=== PATIENT | male | born 1945 | race Two or more races ===

== ENCOUNTER → 2018-05-16 | Outpatient (CLI) | payer MEDICARE ==
[2014-05-11 10:36] VITALS: BP 123/56
[~2018-05-16] MED LIST: GLIP10TA13 PO; GLIP5TAB10 PO; HYDR25SU18 RC; LACT20SO PO; METF10007 PO; METF500T16 PO; PSYL0.5215 PO
--- NOTE | 2018-05-16 17:51 | RAD ---
MRI of the lumbar spine without contrast 04/18/2018 CLINICAL HISTORY: Low back pain. Bilateral leg weakness. TECHNIQUE: Unenhanced T1-weighted and T2-weighted sagittal and axial and inversion recovery sagittal images of the lumbar spine were obtained. FINDINGS: Comparison study is dated 05/07/2014. Very mild S-shaped curvature of the thoracolumbar spine is seen. Degenerative signal changes are seen involving all of the disks of the lumbar spine. Degenerative signal changes are seen within the marrow surrounding these discs. The conus medullaris is within normal limits in morphology, position, and signal characteristics. The L1-2 disc space is within normal limits. At the L2-3 disc space there is a mild generalized disc bulge. This is eccentric to the left. Degenerative changes are seen involving the facet joints bilaterally. There is mild ligamentum flavum hypertrophy bilaterally. These findings when combined do not result in significant central spinal canal or neural foraminal stenosis. At the L3-4 disc space there is a mild generalized disc bulge. Degenerative changes are seen involving the facet joints bilaterally. There are small facet joint effusions bilaterally. There is mild ligamentum flavum hypertrophy bilaterally. There is prominence of the posterior epidural fat. These findings when combined result in mild central spinal canal stenosis. No neural foraminal stenosis is seen. At the L4-5 disc space there is a moderate generalized disc bulge. Degenerative changes are seen involving the facet joints bilaterally. There is moderate ligamentum flavum hypertrophy bilaterally. There is prominence of the posterior epidural fat. These findings when combined result in moderate central spinal canal stenosis. No neural foraminal stenosis is seen. At the L5-S1 disc space there is a mild to moderate generalized disc bulge. Degenerative changes are seen involving the facet joints bilaterally. There is mild ligamentum flavum hypertrophy bilaterally. These findings when combined do not result in significant central spinal canal or neural foraminal stenosis. The central spinal canal stenosis at L4-5 has progressed since the previous examination. IMPRESSION: The changes of degenerative disc disease are seen involving the mid and lower lumbar spine. These findings result in mild central spinal canal stenosis at L3-4 and moderate central spinal canal stenosis at L4-5. No neural foraminal stenosis is seen. Electronically signed by: Christian De La Rosa MD (05/16/2018 5:48 PM) [email or web address]
== END | disposition home or self-care (01) ==
LOC: MRI 10:49
PROVIDERS: ATTEND Orthopaedic Surgery
DX: M51.36 Other intervertebral disc degeneration, lumbar region (principal); M48.061 Spinal stenosis, lumbar region without neurogenic claudication; M51.37 Other intervertebral disc degeneration, lumbosacral region; M25.48 Effusion, other site
CPT/HCPCS: 72148

== ENCOUNTER → 2018-06-10 | Outpatient (CLI) | payer MEDICARE ==
[2014-05-11 10:36] VITALS: BP 123/56
[~2018-06-10] MED LIST changes: +IOHEXOL 180 MG/ML 10 ML VIAL. ONE; +methylPREDNISolone ACETATE 40 MG/ML VIAL. ONE; +methylPREDNISolone ACETATE 80 MG/ML VIAL. ONE
--- NOTE | 2018-06-11 02:58 | PAIN ---
DATE OF SERVICE: 06/10/2018 INITIAL CONSULTATION FOR PAIN CLINIC CHIEF COMPLAINT: Bilateral lower extremity pain. HISTORY OF PRESENT ILLNESS: This is a 73-year-old male who presents with history of pain in the low back and leg, which has been present for many years, worse over the past one year or so. The patient has recent evaluation with his orthopedic surgeon as he thought it was pain in his hips or his knees. These have been well evaluated without any significant findings for intervention or surgery and the patient did have an MRI scan ordered by his orthopedic surgeon showing degenerative disk disease involving the mid and lower lumbar spine resulting in mild central spinal stenosis at L3-L4 and moderate central spinal stenosis at L4-L5 with moderate generalized disk bulge at L4-L5 as well as moderate generalized disk bulge at L5-S1 and L3-L4 as well. The patient reports it is much worse with walking, standing, also with sitting and does awaken him from sleep at night with pain in his knees and legs. The patient reports it does not affect his bowel or bladder control, but does affect his ability to walk. He uses a cane in his right hand to ambulate. The patient has not had any recent physical therapy, did have some in the past, but has been many years. The patient has been doing some stretching on his own, but that is all. No formal physical therapies or chiropractic treatments or other modalities at this time. The patient reports the pain is aching, dull, shooting, sharp as well in the lower extremities and the knees, especially cramping and aching at times and "just hurts." The patient rates his disability rating from 0-10, 10 being the worst, is a 6 with family and home responsibilities; 2 with recreation; 5 with social activity, 4 with occupation; 3 with sexual behavior and life support activities and 0 with self-care activities. PAST MEDICAL HISTORY: Significant for type 2 diabetes, prostate cancer in the past in 2018, history of glaucoma, cataracts. The patient wears glasses. Liver cirrhosis, arthritis. PAST SURGICAL HISTORY: Include right hip surgery and replacement, previous appendectomy, cholecystectomy, hernia repair and amputated fingers on the right hand from a work-related accident. CURRENT MEDICATIONS: Include Metamucil, metformin, glipizide, and lactulose. ALLERGIES: The patient has no known drug allergies. FAMILY HISTORY: Significant for no major medical problems or conditions that he is aware of. SOCIAL HISTORY: The patient does not drink alcohol, does not smoke, does not use any illegal, illicit or recreational medications or drugs. Actually, quit smoking many years ago, did smoke 1 pack a day for 40 years prior to that, quit about 10 years ago. The patient is , live with his spouse, lives locally in [place], [place], reports that he is currently retired. REVIEW OF SYSTEMS: The patient's review of systems is positive for those items mentioned in history of present illness. All systems reviewed and otherwise negative. It is complete, full and well documented on the patient's chart. PHYSICAL EXAMINATION: VITAL SIGNS: Today, the patient's blood pressure is 135/57, pulse 70, respirations 18, temperature is 98.0 degrees Fahrenheit, height is 5 feet 6 inches, and weighs 139 pounds. GENERAL: The patient is awake, alert, oriented, appropriate, very pleasant demeanor. HEENT: Shows normocephalic, atraumatic. Extraocular movements are intact and symmetrical. Oral cavity: Mucous membranes are moist and pink. Dentition is intact. NECK: Anterior throat supple without palpable lymphadenopathy noted. Swallow reflex is symmetrical. CHEST: Shows normal on inspection. Breath sounds are clear to auscultation bilaterally. HEART: Sounds S1, S2 clear. No murmurs auscultated. ABDOMEN: Soft, nontender, nondistended. No palpable organomegaly is noted. No rebound or guarding demonstrated. BACK: Shows spine grossly in the midline. Normal appearing thoracic kyphosis and lumbar lordotic curvature. Lumbar paraspinous musculature shows symmetrical on inspection. On palpation shows some moderate tenderness, but only diffusely without radiation or pain reported. The patient shows no tenderness over the spinous processes, sacrum or sacroiliac region. Shows good rotational motion both laterally greater than 10 degrees right and left as well as extension and flexion without significant pain. EXTREMITIES: The patient's lower extremities show deep tendon reflexes at 1+ in the patellar and tendo calcaneus tendons are equal. Motor exam is 5 out of 5 with dorsiflexion, extension, quadriceps and hamstring flexion and symmetrical. Peripheral pulses are 1+ posterior tibia. No peripheral edema is noted bilaterally. Straight leg raise noted to be negative for reproduction of radicular symptoms bilaterally. Gaenslen's and Dejan's maneuvers are negative bilaterally as well. Lower extremities are warm and dry to touch, equal in color and appearance. The patient's gait shows significantly favoring the left lower extremity when he is walking with antalgic gait. He is using a cane in his right hand to ambulate. SKIN: Shows warm and dry, good turgor. No edema. No sores, rashes or bruising throughout. IMPRESSION: This is a 73-year-old male with: 1. Long history of low back and also bilateral lower extremity pain, slightly worse on the right than the left. 2. Recent orthopedic evaluation for knees and hips without significant operable findings. 3. Arthritis. 4. Type 2 diabetes. 5. History of prostate cancer. 6. History of cirrhosis. PLAN: Options were discussed with the patient including conservative medical management, physical therapy, interventional technique and patient would like to pursue interventional techniques. We discussed a lumbar epidural steroid injection using description as well as anatomical models to describe the procedure. Risks were then discussed including, but not limited to bleeding, infection, possibility of epidural hematoma, subsequent neurologic compromise, dural puncture, headache, spinal cord and/or nerve damage, side effects of steroid medication and poor results regarding pain control. The patient understands and wished to proceed. The patient will return to the clinic in approximately 2 weeks for followup, was counseled on return appointment, activity level and side effects to be aware of. DIAGNOSIS: Lumbar radiculopathy with lumbar spinal stenosis, lumbar degenerative disk disease. PROCEDURE: Lumbar epidural steroid injection, translaminar approach L4-L5 level using C-arm fluoroscopic guidance under sterile prep and drape using local anesthetic. MEDICATION INJECTED: A total of 120 mg Depo-Medrol plus 10 mL of preservative-free normal saline, 2 mL of Isovue for contrast. CONDITION AT DISCHARGE: Stable. The patient tolerated the procedure well, had no complications. CRISSY GARCIA MD DR: CALEB/jason JOB#: [id number] / [id number] TOÑO Ferrer MD
== END | disposition home or self-care (01) ==
LOC: PNCL 08:10
PROVIDERS: ATTEND Anesthesiology
DX: M51.16 Intervertebral disc disorders with radiculopathy, lumbar region (principal); M48.061 Spinal stenosis, lumbar region without neurogenic claudication; E11.9 Type 2 diabetes mellitus without complications; M19.90 Unspecified osteoarthritis, unspecified site; Z85.46 Personal history of malignant neoplasm of prostate; K74.60 Unspecified cirrhosis of liver; H40.9 Unspecified glaucoma; Z96.641 Presence of right artificial hip joint; Z90.49 Acquired absence of other specified parts of digestive tract; Z98.890 Other specified postprocedural states; Z89.021 Acquired absence of right finger(s); Z79.84 Long term (current) use of oral hypoglycemic drugs; Z79.899 Other long term (current) drug therapy
CPT/HCPCS: 62323; J1030; J1040; Q9965

== ENCOUNTER → 2018-06-24 | Outpatient (CLI) | payer MEDICARE ==
[2014-05-11 10:36] VITALS: BP 123/56
--- NOTE | 2018-06-25 00:38 | PAIN ---
DATE OF SERVICE: 06/24/2018 PROGRESS NOTE FOR PAIN CLINIC DIAGNOSES: Lumbar radiculopathy with lumbar degenerative disk disease and lumbar spinal stenosis. HISTORY OF PRESENT ILLNESS: The patient is a 73-year-old male who returns for followup status post lumbar epidural steroid injection x 1. The patient reports about 60% improvement, has still pain in the low back and bilateral lower extremities, but much improved. He has been increasing his activity with greater ease and comfort, has been walking with better ability, has been still having some pain in the knees as well, but otherwise doing quite well. The patient reports that he has been increasing his activity, walking, standing with much better ability, doing household activities as well as travelling with greater ease and comfort also. The patient reports no new motor or sensory deficits, no new bowel or bladder incontinence or other complaints. PHYSICAL EXAMINATION: VITAL SIGNS: The patient's blood pressure is 146/66, pulse 64, respirations are 18 and temperature is 97.7 degrees Fahrenheit. Height is 5 feet 6 inches. GENERAL: The patient is awake, alert, oriented and appropriate. He has a very pleasant demeanor. HEENT EXAMINATION: Shows normocephalic, atraumatic. Extraocular movements are intact and symmetrical. Oral cavity, mucous membranes are moist and pink. Dentition is intact. NECK: Shows anterior throat supple, without palpable lymphadenopathy noted. Swallow reflex is symmetrical. CHEST: Shows normal on inspection. Breath sounds are clear to auscultation bilaterally. HEART: Shows S1, S2 clear. No murmurs auscultated. ABDOMEN: Soft, nontender and nondistended. No palpable organomegaly is noted. No rebound or guarding demonstrated. BACK: Shows spine grossly in the midline. Normal-appearing thoracic kyphosis and minor flattening of the lumbar lordotic curvature. Lumbar paraspinous muscle shows symmetrical on inspection. On palpation, it shows some moderate tenderness, but only diffusely without radiation. EXTREMITIES: The patient's lower extremities show deep tendon reflexes 1+/4 in the patellar and tendo calcaneus tendons. Motor exam is strong with 5/5 dorsiflexion, extension, quadriceps and hamstring flexion equal. Peripheral pulses are 1+ posterior tibia. No peripheral edema is noted bilaterally. Options were discussed with the patient. The patient's old chart was reviewed as was his current medication regimen updated. Current review of systems updated today as well. We will proceed with a second in the series of lumbar epidural steroid injection today with fluoroscopic guidance. Risks were again discussed including, but not limited to bleeding, infection, possibility of epidural hematoma, subsequent neurologic compromise, dural puncture, headaches, spinal cord and/or nerve damage, side effects to steroid medication and poor results regarding pain control. The patient understands and wishes to proceed. The patient will return to clinic in approximately 2 weeks for followup. He was counseled on his return appointment, activity level and side effects to be aware of. DIAGNOSES: Lumbar radiculopathy with lumbar degenerative disk disease and lumbar spinal stenosis. PROCEDURE: Lumbar epidural steroid injection in translaminar approach at L4-L5 level using C-arm fluoroscopic guidance under sterile prep and drape using local anesthetic. MEDICATION INJECTED: A total of 120 mg Depo-Medrol plus 10 mL of preservative-free normal saline and 2 mL of Isovue for contrast. CONDITION AT DISCHARGE: Stable. The patient tolerated the procedure well, had no complications. CRISSY GARCIA MD DR: CALEB/jason JOB#: [id number] / [id number]
== END | disposition home or self-care (01) ==
LOC: PNCL 07:26
PROVIDERS: ATTEND Anesthesiology
DX: M51.16 Intervertebral disc disorders with radiculopathy, lumbar region (principal); M48.061 Spinal stenosis, lumbar region without neurogenic claudication
CPT/HCPCS: 62323; J1030; J1040; Q9965

== ENCOUNTER → 2018-07-15 | Outpatient (CLI) | payer MEDICARE ==
[2014-05-11 10:36] VITALS: BP 123/56
--- NOTE | 2018-07-15 12:01 | PAIN ---
DATE OF SERVICE: 07/15/2018 PROGRESS NOTE FOR PAIN CLINIC DIAGNOSES: Lumbar radiculopathy with lumbar degenerative disk disease and lumbar spinal stenosis. HISTORY OF PRESENT ILLNESS: This is a 73-year-old male who returns for followup status post lumbar epidural steroid injections x 2. The patient reports about 50% improvement overall, may say his main improvement is in the way his knees feel. They feel much better after the injection. The patient reports he is increasing his work, he has been gardening with greater ease and comfort, walking, has been doing household activities, outdoor activities, traveling with much greater ease. The patient reports the pain begins to return now after about 3-4 weeks and again is returning now in the bilateral knees and the low back. The patient reports it is a 5 on a scale of 10 on average, 0 at its least and worst is an 8. The patient reports it is a 5 today. The patient reports it is aching, dull, sometimes shooting, sharp, but mostly aching in the knee itself. The patient reports no new motor or sensory deficits, no new bowel or bladder incontinence or other complaints. PHYSICAL EXAMINATION: VITAL SIGNS: The patient's blood pressure today is 128/49, pulse is 64, respirations 16, temperature 97.8 degrees Fahrenheit, height is 5 feet 6 inches and weight is 190 pounds. GENERAL: The patient is awake, alert, oriented, appropriate, very pleasant demeanor. HEENT: Head shows normocephalic and atraumatic. Extraocular movements are intact and symmetrical. Oral cavity: Mucous membranes are moist and pink. Dentition is intact. NECK: Shows anterior throat is supple without palpable lymphadenopathy noted. Swallow reflex is symmetrical. CHEST: Shows normal with inspection. Breath sounds are clear to auscultation bilaterally. HEART: Shows S1, S2 clear. No murmurs are auscultated. ABDOMEN: Soft, nontender and nondistended. No palpable organomegaly is noted. No rebound or guarding demonstrated. BACK: Shows spine grossly in the midline. Normal appearing thoracic kyphosis and mild flattening of the lumbar lordotic curvature. Lumbar paraspinous muscle shows symmetrical on inspection. On palpation shows some moderate tenderness diffusely, but only diffusely bilaterally without significant radiation. The patient shows good rotational motion of the lumbar spine both laterally as well as extension and flexion without difficulty or pain reported. EXTREMITIES: Lower extremities show deep tendon reflexes 1+ in the patellar and tendo calcaneus tendons. Motor exam is strong with 5/5 dorsiflexion, extension, quadriceps and hamstring flexion equal bilaterally. Peripheral pulses are 1+ posterior tibia. No peripheral edema is noted. Options were discussed with the patient. The patient's old chart was reviewed as was his current medication regimen updated. Current review of systems updated today as well. We will proceed with a third in the series of lumbar epidural steroid injection today with fluoroscopic guidance. Risks were again discussed including, but not limited to bleeding, infection, possibility of epidural hematoma, subsequent neurological compromise, dural puncture, headaches, spinal cord and/or nerve damage, side effects of steroid medication and poor results regarding pain control. The patient understands and wished to proceed. The patient will return to clinic in approximately 2 weeks for followup. She was counseled as to return appointment, activity level and side effects to be aware of. DIAGNOSES: Lumbar radiculopathy with lumbar degenerative disk disease, lumbar spinal stenosis. PROCEDURE: Lumbar epidural steroid injection, translaminar approach L4-L5 level using C-arm fluoroscopic guidance under sterile prep and drape using local anesthetic. MEDICATION INJECTED: A total of 120 mg Depo-Medrol plus 10 mL of preservative-free normal saline and 2 mL of Isovue for contrast. CONDITION AT DISCHARGE: Stable. The patient tolerated the procedure well and had no complications. CRISSY GARCIA MD DR: CALEB/jason JOB#: [id number] / [id number]
== END | disposition home or self-care (01) ==
LOC: PNCL 07:35
PROVIDERS: ATTEND Anesthesiology
DX: M51.16 Intervertebral disc disorders with radiculopathy, lumbar region (principal); M48.061 Spinal stenosis, lumbar region without neurogenic claudication
CPT/HCPCS: 62323; J1030; J1040; Q9965

== ENCOUNTER 2019-10-28 10:29 | Inpatient (IN) | payer MEDICARE ==
[~2019-10-28] VITALS: Ht 167.6 cm; Wt 80.9 kg
[~2019-10-28 10:29] MED LIST changes: -IOHEXOL 180 MG/ML 10 ML VIAL. ONE; -methylPREDNISolone ACETATE 40 MG/ML VIAL. ONE; -methylPREDNISolone ACETATE 80 MG/ML VIAL. ONE
[2019-10-28 11:00] VITALS: BP 114/41
[2019-10-28] MEDS ORDERED: LACTULOSE 20 GM/30 ML SOLUTION. PO PRN (11:15)
[2019-10-28] MEDS: rifAXIMin 550 MG TABLET PO SCH ×3 (12:09→21:06)
[2019-10-28] MEDS: LACTULOSE 20 GM/30 ML SOLUTION. PO SCH ×3 (12:09→21:06)
[2019-10-28 12:19] LABS: BASO % 0 % (0-3); EOS # 0.1 x10^3/uL (0.0-0.7); EOS % 3 % (0-3); HEMATOCRIT 36.2 % (39.0-53.0); HEMOGLOBIN 12.7 g/dL (13.0-17.5); LYMPH # 0.9 x10^3/uL (1.0-4.8); LYMPH % 18 % (24-48); MEAN CORPUSCULAR HEMOGLOBIN 35 pg (25-35); MEAN CORPUSCULAR HGB CONC 35 g/dL (31-37); MEAN CORPUSCULAR VOLUME 100 fL (79-100); MONO # 0.4 x10^3/uL (0.0-1.1); MONO % 8 % (0-9); NEUT # 3.7 x10^3/uL (1.8-7.7); NEUT % 71 % (31-73); PLATELET COUNT 65 x10^3/uL (140-400); RED BLOOD COUNT 3.62 x10^6/uL (4.30-5.70); RED CELL DISTRIBUTION WIDTH 13.4 % (11.5-14.5); WHITE BLOOD COUNT 5.2 x10^3/uL (4.0-11.0)
[2019-10-28 12:34] LABS: ALBUMIN 3.1 g/dL (3.4-5.0); ALBUMIN/GLOBULIN RATIO 1.1 (1.0-1.7); CALCIUM 8.2 mg/dL (8.5-10.1); GFR 72.8; POTASSIUM 4.3 mmol/L (3.5-5.1); TOTAL BILIRUBIN 3.1 mg/dL (0.2-1.0); TOTAL PROTEIN 5.8 g/dL (6.4-8.2)
--- NOTE | 2019-10-28 13:57 | PDOC2 ---
GI CONSULT Date of Service: DATE: 10/28/19 TIME: 13:34 Reason For Consult: hepatic encephalopathy HPI: HPI: 74 y/o male directly admitted by Dr. Caamcho. History from nurse - has been out of meds x 3 weeks and confused. We do not have a medication list but he has been started on Xifaxan and lactulose here. He is able to tell me he does not have pain and has not had bleeding. He is focused on seeing Dr. Camacho today because he says he's not waiting til tomorrow. Per [facility]: CT A/P 09/2013 (for follow-up on cirrhosis): cirrhosis w/ portal hypertension and extensive varices. Noted cholecystectomy. Barium swallow 02/2014: decreased esophageal peristalsis. Hep B and C were negative in 2014. RUBEN was negative and AMA was normal. Hemochromatosis testing was "low risk"/negative. B12 was normal in 2014. Past labs note hyperammonemia once in 2014, thrombocytopenia, and elevated bilirubin and AST. Mention of past heavy alcohol use. Per our office: No complications from cirrhosis per OV 06/21/16. EGD and colonoscopy on 06/29/[address] Alvarez showed reflux esophagitis (confirmed w/ biopsy, negative for Herrera's, and ?positive for eosinophilic esophagitis), chronic gastritis, normal duodenum, no varices, sigmoid diverticulosis, and internal hemorrhoids. PMH: PMH: per chart: DM, lumbar stenosis, DDD cholecystectomy, appendectomy, right hip replacement, ?hernia repair Social History: Smoke: Quit ALCOHOL: other (unclear - heavy in the past?) ROS: Difficult to obtain - denies and pain and bleeding. Vitals: Vitals: Vital Signs Date Time Temp Pulse Resp B/P (MAP) Pulse Ox O2 Delivery O2 Flow Rate FiO2 10/28/19 11:00 97.6 70 18 114/41 (65) 100 Room Air 97.6 Labs: Labs: Laboratory Tests Test 10/28/19 12:10 White Blood Count 5.2 x10^3/uL (4.0-11.0) Red Blood Count 3.62 x10^6/uL (4.30-5.70) Hemoglobin 12.7 g/dL (13.0-17.5) Hematocrit 36.2 % (39.0-53.0) Mean Corpuscular Volume 100 fL (79-100) Mean Corpuscular Hemoglobin 35 pg (25-35) Mean Corpuscular Hemoglobin Concent 35 g/dL (31-37) Red Cell Distribution Width 13.4 % (11.5-14.5) Platelet Count 65 x10^3/uL (140-400) Neutrophils (%) (Auto) 71 % (31-73) Lymphocytes (%) (Auto) 18 % (24-48) Monocytes (%) (Auto) 8 % (0-9) Eosinophils (%) (Auto) 3 % (0-3) Basophils (%) (Auto) 0 % (0-3) Neutrophils # (Auto) 3.7 x10^3/uL (1.8-7.7) Lymphocytes # (Auto) 0.9 x10^3/uL (1.0-4.8) Monocytes # (Auto) 0.4 x10^3/uL (0.0-1.1) Eosinophils # (Auto) 0.1 x10^3/uL (0.0-0.7) Basophils # (Auto) 0.0 x10^3/uL (0.0-0.2) Sodium Level 140 mmol/L (136-145) Potassium Level 4.3 mmol/L (3.5-5.1) Chloride Level 108 mmol/L (98-107) Carbon Dioxide Level 22 mmol/L (21-32) Anion Gap 10 (6-14) Blood Urea Nitrogen 27 mg/dL (8-26) Creatinine 1.0 mg/dL (0.7-1.3) Estimated GFR (Cockcroft-Gault) 72.8 BUN/Creatinine Ratio 27 (6-20) Glucose Level 142 mg/dL (70-99) Calcium Level 8.2 mg/dL (8.5-10.1) Total Bilirubin 3.1 mg/dL (0.2-1.0) Aspartate Amino Transf (AST/SGOT) 35 U/L (15-37) Alanine Aminotransferase (ALT/SGPT) 29 U/L (16-63) Alkaline Phosphatase 116 U/L (46-116) Ammonia 72 mcmol/L (11-34) Total Protein 5.8 g/dL (6.4-8.2) Albumin 3.1 g/dL (3.4-5.0) Albumin/Globulin Ratio 1.1 (1.0-1.7) Allergies: Coded Allergies: No Known Drug Allergies (Unverified , 01/01/15) Medications: Current Medications Medications (Trade) Dose Ordered Sig/Emily Route PRN Reason Start Time Stop Time Status Last Admin Dose Admin Rifaximin (Xifaxan) 550 mg TID PO 10/28/19 11:30 10/28/19 12:09 Lactulose (Lactulose) 15 gm QID PO 10/28/19 12:00 10/28/19 12:09 Imaging: Imaging: - PE: GEN: NAD HEENT: Atraumatic, PERRL LUNGS: CTAB anteriorly HEART: RRR ABD: NABS, round/?ascites, non-tender EXTREMITY: BLE pitting edema SKIN: No rashes NEURO/PSYCH: confused, speaks slowly - can tell me he's at [place], says "dummy" is president, and when asked what year it is he tells me his birthday A/P: A/P: AMS, non-compliance H/o cirrhosis - ?from alcohol Chronic thrombocytopenia, hyperbilirubinemia, hyperammonemia GERD CRC screen - UTD Diverticulosis, hemorrhoids S/p cholecystectomy -- Last liver imaging here in 2013. Will check US/doppler and additional labs. Continue lactulose and Xifaxan, add acid-dry roaster for h/o GERD. Await home medication list. SEMAJ MAN Oct 28, 2019 13:57
[2019-10-28 15:00] VITALS: BP 110/42
[2019-10-28 15:49] LABS: PROTHROMBIN TIME PATIENT 16.1 SEC (11.7-14.0)
--- NOTE | 2019-10-28 16:40 | RAD ---
Ultrasound of the abdomen to include duplex evaluationof the portal vein 10/28/2019 CLINICAL HISTORY: Cirrhosis of the liver. TECHNIQUE: A real-time ultrasound examination of the abdomen was performed. Additionally using a combination of real-time ultrasound imaging and color-flow and pulse Doppler imaging techniques, duplex evaluation of the portal vein was performed. Multiple images were obtained. FINDINGS: Comparison is made to patient's CT scan of the abdomen and pelvis dated 10/24/2013. The gallbladder is not visualized consistent with a cholecystectomy. The liver is small measuring 13.1 cm in length. It is heterogeneous with a nodular contour consistent with cirrhosis. No focal abnormality of liver is seen. The common bile duct measures 7 mm in diameter which is within normal limits given the patient's age. The spleen is mildly enlarged measuring 14.3 cm in length. The visualized portions of the pancreas and both kidneys are within normal limits. The abdominal aorta is not visualized due to overlying bowel gas. The inferior vena cava is not visualized due to overlying bowel gas. No free fluid is seen. Duplex evaluation of the main portal vein demonstrates it to be patent with normal hepatopetal flow. The peak systolic velocity is 14.1 cm/s. The left and right portal veins are patent and demonstrates normal hepatopetal flow. IMPRESSION: 1. Findings consistent with cirrhosis of the liver. 2. Mild splenomegaly. 3. Patent portal vein with normal hepatopetal flow. 4. No ascites is seen. Electronically signed by: Christian De La Rosa MD (10/28/2019 4:37 PM) [id number]
[2019-10-28] MEDS: PANTOPRAZOLE 40 MG TABLET.DR. PO SCH (18:16)
[2019-10-28 19:00] VITALS: BP 106/37
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
[2019-10-28] MEDS: SPIRONOLACTONE 25 MG TABLET PO SCH (21:06)
[2019-10-28] MEDS: OXYBUTYNIN CHLORIDE 5 MG TABLET PO SCH (21:06)
[2019-10-28 22:21] VITALS: BP 99/35
[2019-10-29 03:43] VITALS: BP 102/38
[2019-10-29] MEDS: PANTOPRAZOLE 40 MG TABLET.DR. PO SCH (06:23)
[2019-10-29 07:00] VITALS: BP 102/36
--- NOTE | 2019-10-29 07:50 | PDOC ---
DATE OF SERVICE: DATE: 10/29/19 TIME: 07:48 GENERAL General: vss and afebrile. awake and alert and much better mentally this am but still not at baseline. bilirubin 3.1, INR 1.3, US abdomen with cirrhosis and no ascites or portal vein issues and splenomegaly. [facility] and will ask therapy to see for ambulation today. VITAL SIGNS/I&O Vital Signs/I&O: Vital Signs Date Time Temp Pulse Resp B/P (MAP) Pulse Ox O2 Delivery O2 Flow Rate FiO2 10/29/19 07:00 98.4 63 16 102/36 (58) 99 Room Air 98.4 I & O 10/28/19 10/28/19 10/29/19 15:00 23:00 07:00 Intake Total 200 ml 200 ml 400 ml Output Total 300 ml Balance -100 ml 200 ml 400 ml ALLERGIES Allergies: Allergies Coded Allergies Type Severity Reaction Last Updated Verified No Known Drug Allergies 01/01/15 No MEDS Medications: Current Medications Medications (Trade) Dose Ordered Sig/Emily Route PRN Reason Start Time Stop Time Status Last Admin Dose Admin Rifaximin (Xifaxan) 550 mg TID PO 10/28/19 11:30 10/28/19 21:06 Lactulose (Lactulose) 15 gm QID PO 10/28/19 12:00 10/28/19 21:06 Pantoprazole Sodium (Protonix) 40 mg DAILYAC PO 10/28/19 15:00 10/29/19 06:23 Spironolactone (Aldactone) 50 mg BID PO 10/28/19 21:00 10/28/19 21:06 Oxybutynin Chloride (Ditropan) 5 mg [id number] PO 10/28/19 21:00 10/28/19 21:06 LAB Lab: Laboratory Tests Test 10/28/19 12:10 10/28/19 15:15 White Blood Count 5.2 x10^3/uL (4.0-11.0) Red Blood Count 3.62 x10^6/uL (4.30-5.70) L Hemoglobin 12.7 g/dL (13.0-17.5) L Hematocrit 36.2 % (39.0-53.0) L Mean Corpuscular Volume 100 fL (79-100) Mean Corpuscular Hemoglobin 35 pg (25-35) Mean Corpuscular Hemoglobin Concent 35 g/dL (31-37) Red Cell Distribution Width 13.4 % (11.5-14.5) Platelet Count 65 x10^3/uL (140-400) L Neutrophils (%) (Auto) 71 % (31-73) Lymphocytes (%) (Auto) 18 % (24-48) L Monocytes (%) (Auto) 8 % (0-9) Eosinophils (%) (Auto) 3 % (0-3) Basophils (%) (Auto) 0 % (0-3) Neutrophils # (Auto) 3.7 x10^3/uL (1.8-7.7) Lymphocytes # (Auto) 0.9 x10^3/uL (1.0-4.8) L Monocytes # (Auto) 0.4 x10^3/uL (0.0-1.1) Eosinophils # (Auto) 0.1 x10^3/uL (0.0-0.7) Basophils # (Auto) 0.0 x10^3/uL (0.0-0.2) Sodium Level 140 mmol/L (136-145) Potassium Level 4.3 mmol/L (3.5-5.1) Chloride Level 108 mmol/L (98-107) H Carbon Dioxide Level 22 mmol/L (21-32) Anion Gap 10 (6-14) Blood Urea Nitrogen 27 mg/dL (8-26) H Creatinine 1.0 mg/dL (0.7-1.3) Estimated GFR (Cockcroft-Gault) 72.8 BUN/Creatinine Ratio 27 (6-20) H Glucose Level 142 mg/dL (70-99) H Calcium Level 8.2 mg/dL (8.5-10.1) L Total Bilirubin 3.1 mg/dL (0.2-1.0) H Aspartate Amino Transferase (AST) 35 U/L (15-37) Alanine Aminotransferase (ALT) 29 U/L (16-63) Alkaline Phosphatase 116 U/L (46-116) Ammonia 72 mcmol/L (11-34) H Total Protein 5.8 g/dL (6.4-8.2) L Albumin 3.1 g/dL (3.4-5.0) L Albumin/Globulin Ratio 1.1 (1.0-1.7) Tumor Marker Alpha Fetoprotein 2.5 ng/mL (0.0-8.3) Prothrombin Time 16.1 SEC (11.7-14.0) H Prothrombin Time INR 1.3 (0.8-1.1) H Laboratory Tests 10/28/19 12:10 Laboratory Tests 10/28/19 12:10 Justifications for Admission Other Justification TOÑO CLAIRE MD Oct 29, 2019 07:50
[2019-10-29] MEDS: LACTULOSE 20 GM/30 ML SOLUTION. PO SCH ×4 (08:29→21:18)
[2019-10-29] MEDS: FUROSEMIDE 40 MG TABLET. PO SCH (08:29)
[2019-10-29] MEDS: SPIRONOLACTONE 25 MG TABLET PO SCH ×2 (08:29→21:16)
[2019-10-29] MEDS: OXYBUTYNIN CHLORIDE 5 MG TABLET PO SCH ×3 (08:30→21:16)
[2019-10-29] MEDS: PIOGLITAZONE 15 MG TABLET. PO SCH (08:30)
[2019-10-29] MEDS: rifAXIMin 550 MG TABLET PO SCH ×3 (08:30→21:15)
[2019-10-29] MEDS: glipiZIDE 5 MG TABLET PO SCH ×2 (08:30→16:21)
[2019-10-29] MEDS: LISINOPRIL 5 MG TABLET. PO SCH (08:30)
[2019-10-29 08:32] LABS: HEMATOCRIT 37.6 % (39.0-53.0); HEMOGLOBIN 13.2 g/dL (13.0-17.5); RED BLOOD COUNT 3.78 x10^6/uL (4.30-5.70); RED CELL DISTRIBUTION WIDTH 13.3 % (11.5-14.5); WHITE BLOOD COUNT 4.7 x10^3/uL (4.0-11.0)
[2019-10-29 08:48] LABS: CALCIUM 8.2 mg/dL (8.5-10.1); CREATININE 0.9 mg/dL (0.7-1.3); GFR 82.3; POTASSIUM 4.1 mmol/L (3.5-5.1); TOTAL BILIRUBIN 3.4 mg/dL (0.2-1.0); TOTAL PROTEIN 5.9 g/dL (6.4-8.2)
--- NOTE | 2019-10-29 09:26 | PDOC ---
Date of Service: DATE: 10/29/19 TIME: 09:21 Subjective: Subjective: Wants to call Dr. Camacho and is upset that I don't know the number. Wants to know when he can leave. Objective: Objective: D/w nurse - has stooled, dumped lactulose out on his tray last night. Vital Signs: Vital Signs Date Time Temp Pulse Resp B/P (MAP) Pulse Ox O2 Delivery O2 Flow Rate FiO2 10/29/19 08:30 63 102/36 10/29/19 07:00 98.4 16 99 Room Air 98.4 Labs: Laboratory Tests Test 10/28/19 12:10 10/28/19 15:15 10/29/19 08:10 White Blood Count 5.2 x10^3/uL 4.7 x10^3/uL Red Blood Count 3.62 x10^6/uL 3.78 x10^6/uL Hemoglobin 12.7 g/dL 13.2 g/dL Hematocrit 36.2 % 37.6 % Mean Corpuscular Volume 100 fL 100 fL Mean Corpuscular Hemoglobin 35 pg 35 pg Mean Corpuscular Hemoglobin Concent 35 g/dL 35 g/dL Red Cell Distribution Width 13.4 % 13.3 % Platelet Count 65 x10^3/uL 61 x10^3/uL Neutrophils (%) (Auto) 71 % Lymphocytes (%) (Auto) 18 % Monocytes (%) (Auto) 8 % Eosinophils (%) (Auto) 3 % Basophils (%) (Auto) 0 % Neutrophils # (Auto) 3.7 x10^3/uL Lymphocytes # (Auto) 0.9 x10^3/uL Monocytes # (Auto) 0.4 x10^3/uL Eosinophils # (Auto) 0.1 x10^3/uL Basophils # (Auto) 0.0 x10^3/uL Sodium Level 140 mmol/L 138 mmol/L Potassium Level 4.3 mmol/L 4.1 mmol/L Chloride Level 108 mmol/L 106 mmol/L Carbon Dioxide Level 22 mmol/L 24 mmol/L Anion Gap 10 8 Blood Urea Nitrogen 27 mg/dL 19 mg/dL Creatinine 1.0 mg/dL 0.9 mg/dL Estimated GFR (Cockcroft-Gault) 72.8 82.3 BUN/Creatinine Ratio 27 21 Glucose Level 142 mg/dL 135 mg/dL Calcium Level 8.2 mg/dL 8.2 mg/dL Total Bilirubin 3.1 mg/dL 3.4 mg/dL Aspartate Amino Transf (AST/SGOT) 35 U/L 46 U/L Alanine Aminotransferase (ALT/SGPT) 29 U/L 31 U/L Alkaline Phosphatase 116 U/L 129 U/L Ammonia 72 mcmol/L Total Protein 5.8 g/dL 5.9 g/dL Albumin 3.1 g/dL 3.0 g/dL Albumin/Globulin Ratio 1.1 1.0 Tumor Marker Alpha Fetoprotein 2.5 ng/mL Prothrombin Time 16.1 SEC Prothromb Time International Ratio 1.3 Imaging: Abd US/Doppler IMPRESSION: 1. Findings consistent with cirrhosis of the liver. 2. Mild splenomegaly. 3. Patent portal vein with normal hepatopetal flow. 4. No ascites is seen. PE: GEN: NAD - trying to use phone LUNGS: clear anteriorly HEART: RRR ABD: S/ND/NT NEURO/PSYCH: confused A/P: Hepatic encephalopathy -- Normal AFP. US w/ cirrhosis, mild splenomegaly, and patent PV as above. MELD 15. Continue lactulose for goal of 3-4 stools daily. Continue Xifaxan. DC per primary. Justicifation of Admission Dx: Justifications for Admission: Justification of Admission Dx: Yes SEMAJ MAN Oct 29, 2019 09:26
[2019-10-29 10:30] VITALS: BP 105/36
--- NOTE | 2019-10-29 11:45 | NUR ---
SS following for discharge planning. SS reviewed pt chart and discussed with pt RN. Pt is from home with spouse and is currently on room air. PT/OT ordered. SS will continue to follow for discharge planning.
[2019-10-29 15:22] VITALS: BP 102/42
[2019-10-29 19:28] VITALS: BP 111/38
[2019-10-29 22:37] VITALS: BP 134/102
[2019-10-30 03:03] VITALS: BP 114/46
[2019-10-30 04:34] LABS: CALCIUM 7.7 mg/dL (8.5-10.1); CREATININE 1.1 mg/dL (0.7-1.3); GFR 65.3; POTASSIUM 3.7 mmol/L (3.5-5.1)
[2019-10-30 07:00] VITALS: BP 111/40
[2019-10-30] MEDS: LACTULOSE 20 GM/30 ML SOLUTION. PO SCH ×4 (08:24→21:59)
[2019-10-30] MEDS: glipiZIDE 5 MG TABLET PO SCH ×2 (08:24→16:27)
[2019-10-30] MEDS: OXYBUTYNIN CHLORIDE 5 MG TABLET PO SCH ×3 (08:25→21:59)
[2019-10-30] MEDS: PANTOPRAZOLE 40 MG TABLET.DR. PO SCH (08:25)
[2019-10-30] MEDS: FUROSEMIDE 40 MG TABLET. PO SCH (08:25)
[2019-10-30] MEDS: SPIRONOLACTONE 25 MG TABLET PO SCH ×2 (08:25→21:59)
[2019-10-30] MEDS: rifAXIMin 550 MG TABLET PO SCH ×3 (08:25→21:59)
[2019-10-30] MEDS: PIOGLITAZONE 15 MG TABLET. PO SCH (08:25)
[2019-10-30] MEDS: LISINOPRIL 5 MG TABLET. PO SCH (08:27)
--- NOTE | 2019-10-30 10:27 | PDOC ---
DATE OF SERVICE: DATE: 10/30/19 TIME: 10:25 GENERAL General: vss and afebrile. awake and alert. mentation remains better. NH3- 91. [facility] or will be right back chest clear, heart regular, abdomen benign. continue same. VITAL SIGNS/I&O Vital Signs/I&O: Vital Signs Date Time Temp Pulse Resp B/P (MAP) Pulse Ox O2 Delivery O2 Flow Rate FiO2 10/30/19 08:27 74 114/46 10/30/19 07:00 98.9 18 98 Room Air 98.9 I & O 10/29/19 10/29/19 10/30/19 15:00 23:00 07:00 Intake Total 480 ml 800 ml 0 ml Output Total 250 ml Balance 480 ml 800 ml -250 ml ALLERGIES Allergies: Allergies Coded Allergies Type Severity Reaction Last Updated Verified No Known Drug Allergies 01/01/15 No LAB Lab: Laboratory Tests Test 10/30/19 03:10 Sodium Level 136 mmol/L (136-145) Potassium Level 3.7 mmol/L (3.5-5.1) Chloride Level 104 mmol/L (98-107) Carbon Dioxide Level 24 mmol/L (21-32) Anion Gap 8 (6-14) Blood Urea Nitrogen 13 mg/dL (8-26) Creatinine 1.1 mg/dL (0.7-1.3) Estimated GFR (Cockcroft-Gault) 65.3 Glucose Level 185 mg/dL (70-99) H Calcium Level 7.7 mg/dL (8.5-10.1) L Ammonia 91 mcmol/L (11-34) H Laboratory Tests 10/30/19 03:10 Justifications for Admission Other Justification TOÑO CLAIRE MD Oct 30, 2019 10:27
[2019-10-30 11:00] VITALS: BP 98/43
--- NOTE | 2019-10-30 11:26 | PDOC ---
Date of Service: DATE: 10/30/19 TIME: 11:23 Subjective: Subjective: Tolerating diet and stooling. "I don't want anything else to eat, I'll just take my pills." Trying to call Dr. Camacho again. Objective: Objective: D/w nurse - issue is can't get meds from [facility], can't afford elsewhere. Mental status is better and is stooling appropriately. Vital Signs: Vital Signs Date Time Temp Pulse Resp B/P (MAP) Pulse Ox O2 Delivery O2 Flow Rate FiO2 10/30/19 11:00 98.3 70 18 98/43 (61) 100 Room Air 98.3 Labs: Laboratory Tests Test 10/30/19 03:10 Sodium Level 136 mmol/L Potassium Level 3.7 mmol/L Chloride Level 104 mmol/L Carbon Dioxide Level 24 mmol/L Anion Gap 8 Blood Urea Nitrogen 13 mg/dL Creatinine 1.1 mg/dL Estimated GFR (Cockcroft-Gault) 65.3 Glucose Level 185 mg/dL Calcium Level 7.7 mg/dL Ammonia 91 mcmol/L URINE CULTURE Final Final 40,000 CFU/ML GRAM NEGATIVE RODS on 10/29/19 at 0957 FINAL ID= [PROTEUS MIRABILIS ESBL] PE: GEN: NAD LUNGS: CTAB HEART: RRR ABD: soft, non-tender NEURO/PSYCH: still confused but better A/P: Hepatic encephalopathy - out of meds at home, restarted lactulose and Xifaxan here, also looks like on Lasix and Aldactone UTI - per primary -- Continue same per GI. Justicifation of Admission Dx: Justifications for Admission: Justification of Admission Dx: Yes SEMAJ MAN Oct 30, 2019 11:26
--- NOTE | 2019-10-30 12:22 | NUR ---
SS following up with discharge planning. SS reviewed pt chart and discussed with pt RN. Pt is currently on room air. PT/OT recommended half-way unit. SS met with pt and discussed discharge planning and half-way unit. Pt declined half-way unit stating that he will return to home at discharge. Pt's RN notified. SS will continue to follow for discharge planning.
[2019-10-30 15:00] VITALS: BP 106/42
[2019-10-30 19:31] VITALS: BP 88/61
[2019-10-30] MEDS ORDERED: diphenhydrAMINE HCL 25 MG CAPSULE PO PRN (21:00)
[2019-10-30 22:30] VITALS: BP 111/41
[2019-10-31 02:48] VITALS: BP 98/42
[2019-10-31 07:00] VITALS: BP 107/43
[2019-10-31] MEDS ORDERED: OXYB5TAB10 PO (07:58)
[2019-10-31] MEDS ORDERED: LACT20SO PO (07:58)
[2019-10-31] MEDS ORDERED: PIOG15TA42 PO (07:58)
[2019-10-31] MEDS ORDERED: RIFA550T4 PO (07:58)
[2019-10-31] MEDS ORDERED: LISI-338 PO (07:58)
[2019-10-31] MEDS ORDERED: SPIR25TA PO (07:58)
[2019-10-31] MEDS ORDERED: GLIP5TAB10 PO (07:58)
[2019-10-31] MEDS ORDERED: PANT40TA77 PO (07:58)
[2019-10-31] MEDS ORDERED: FURO40TA4 PO (07:58)
[2019-10-31] MEDS: LACTULOSE 20 GM/30 ML SOLUTION. PO SCH (08:06)
[2019-10-31] MEDS: FUROSEMIDE 40 MG TABLET. PO SCH (08:07)
[2019-10-31] MEDS: OXYBUTYNIN CHLORIDE 5 MG TABLET PO SCH (08:07)
[2019-10-31] MEDS: PANTOPRAZOLE 40 MG TABLET.DR. PO SCH (08:07)
[2019-10-31] MEDS: rifAXIMin 550 MG TABLET PO SCH (08:07)
[2019-10-31] MEDS: PIOGLITAZONE 15 MG TABLET. PO SCH (08:07)
[2019-10-31] MEDS: SPIRONOLACTONE 25 MG TABLET PO SCH (08:07)
[2019-10-31] MEDS: glipiZIDE 5 MG TABLET PO SCH (08:07)
[2019-10-31] MEDS: LISINOPRIL 5 MG TABLET. PO SCH (08:08)
[2019-10-31 10:52] VITALS: BP 117/63
--- NOTE | 2019-10-31 11:36 | PDOC ---
Date of Service: DATE: 10/31/19 TIME: 11:34 Subjective: Subjective: Dressed to leave, wants to know what's taking so long. Objective: Vital Signs: Vital Signs Date Time Temp Pulse Resp B/P (MAP) Pulse Ox O2 Delivery O2 Flow Rate FiO2 10/31/19 10:52 97.8 84 16 117/63 (81) 100 Room Air 97.8 PE: GEN: NAD LUNGS: CTAB HEART: RRR ABD: S/ND/NT NEURO/PSYCH: less confused A/P: Hepatic encephalopathy, UTI -- Dc per primary, continue lactulose and Xifaxan. Justicifation of Admission Dx: Justifications for Admission: Justification of Admission Dx: Yes SEMAJ MAN Oct 31, 2019 11:35
--- NOTE | 2019-10-31 11:38 | NUR ---
Discharge instructions given to patient and family. Education given over medications and hepatic encephalopathy. Pt informed to follow up with Dr. Camacho and the CT for his medications. Candida, [facility] was contacted and informed of discharge. She will be meeting him when he gets home. Pt verbalizes understanding.
--- NOTE | 2019-10-31 19:25 | DS ---
DATE OF DISCHARGE: 10/31/2019 PRIMARY DIAGNOSIS: Hepatic encephalopathy. ADDITIONAL DIAGNOSES: 1. Ataxia, likely related to the above. 2. Cirrhosis. 3. Diabetes. CHIEF COMPLAINT AND HISTORY OF PRESENT ILLNESS: This is a 74-year-old male, admitted through my office on the day of admission because of hepatic encephalopathy and extreme ataxia with his being unable to handle him at home from both regards. SUMMARY OF STAY: The patient was admitted. Ammonia level was elevated. He was placed on his home lactulose, which he had been taking and Xifaxan was added back to his regimen. GI saw him during the stay. His mental status improved dramatically. Ultrasound done of the abdomen showed cirrhosis with no ascites or portal vein issues and some splenomegaly. Calls were put in to the [facility] to try to get them to renew his Xifaxan, which by history was he had not been taking for a week or 10 days because of inability to get it from them. I had no success reaching the [facility], but had messages on their machine. He was back to his baseline with therapy, still thinking maybe some chcf would be advisable for ambulation; however, the patient was refusing the same. It was elected to discharge him to home. My plan is when this happens again, to send him to the [facility] and send him there repeatedly until they decide to give him the medicine that will keep him out of the hospital. DISPOSITION: The patient is discharged to home. DIET: As tolerated. ACTIVITY: As tolerated. FOLLOWUP: At office in 1 week. DISCHARGE MEDICATIONS: Listed on the med rec and have been addressed. He does have a prescription for Xifaxan at a local pharmacy from myself; however, he has been unable to fill the same due to the cost issues, which is quite high. TOÑO CLAIRE MD DR: JAGDISH/jason JOB#: [id number] / [id number]
== END 2019-10-31 11:55 | disposition home or self-care (01) | DRG 442 ==
LOC: 2 NORTH 10:29
PROVIDERS: ADMIT Family Medicine; ATTEND Family Medicine
DX: K72.90 Hepatic failure, unspecified without coma (principal); E44.0 Moderate protein-calorie malnutrition; K76.6 Portal hypertension; N39.0 Urinary tract infection, site not specified; I10 Essential (primary) hypertension; Z68.28 Body mass index [BMI] 28.0-28.9, adult; E11.319 Type 2 diabetes mellitus with unspecified diabetic retinopathy without macular edema; K21.0 Gastro-esophageal reflux disease with esophagitis; K74.60 Unspecified cirrhosis of liver; M48.061 Spinal stenosis, lumbar region without neurogenic claudication; Z96.641 Presence of right artificial hip joint; H40.9 Unspecified glaucoma; K57.90 Diverticulosis of intestine, part unspecified, without perforation or abscess without bleeding; D69.6 Thrombocytopenia, unspecified; E80.6 Other disorders of bilirubin metabolism; K64.9 Unspecified hemorrhoids; R27.0 Ataxia, unspecified; Z87.11 Personal history of peptic ulcer disease; Z90.49 Acquired absence of other specified parts of digestive tract
CPT/HCPCS: 36415; 76700; 80048; 80053; 82105; 82140; 85025; 85027; 85610; 87077; 87086; 87186; 93976; 97110-GO; 97116-GP; 97530-GP; 97535-GO; G0378; Q0163

== ENCOUNTER 2020-03-08 09:54 | Inpatient (IN) | payer MEDICARE ==
[~2020-03-08] VITALS: Ht 170.2 cm; Wt 74.8 kg
[~2020-03-08 09:54] MED LIST changes: +FURO40TA4 PO; +LISI-517 PO; +OXYB5TAB10 PO; +PANT40TA77 PO; +PIOG15TA42 PO; +RIFA550T4 PO; +SPIR25TA PO
--- NOTE | 2020-03-08 10:35 | PHYS DOC ---
Past Medical History Past Medical History: Diabetes-Type II Past Surgical History: Appendectomy, Hip Replacement Additional Past Surgical Histo: right knee scope Smoking Status: Unknown if ever smoked Alcohol Use: None Drug Use: None General Adult EDM: Chief Complaint: ALTERED MENTAL STATUS HPI: HPI: 74-year-old male past medical history of cirrhosis, diabetes and history of hepatic encephalopathy in July 2019, presents to the ED with his sister, concern for altered mental status, believes he was last known well at his baseline mental status, 2 days ago. Patient was unable to walk with his walker today. Fell out of bed around 3 AM. History and review of systems unobtainable due to patient's mental status/medical condition. Review of Systems: Review of Systems: Unobtainable Heart Score: Risk Factors: Risk Factors: DM, Current or recent (<one month) smoker, HTN, HLP, family history of CAD, obesity. Risk Scores: Score 0 - 3: 2.5% MACE over next 6 weeks - Discharge Home Score 4 - 6: 20.3% MACE over next 6 weeks - Admit for Clinical Observation Score 7 - 10: 72.7% MACE over next 6 weeks - Early Invasive Strategies Allergies: Allergies: Allergies Coded Allergies Type Severity Reaction Last Updated Verified I S O L A T I O N *CONTACT* Allergy Unknown 11/06/19 Yes No Known Medication Allergies Allergy Unknown 11/06/19 Yes Physical Exam: PE: Constitutional: no acute distress, follows some commands, not speaking HENT: Normocephalic, atraumatic, no facial droop, moist mucous membranes, no scleral icterus Eyes: PERRLA, EOMI, conjunctiva normal, no discharge. Neck: Normal range of motion, supple, Cardiovascular: S1/2 present, regular rhythm Lungs & Thorax: bilateral equal chest rise, no tachypnea or increased work of breathing Abdomen: soft, no tenderness, multiple surgical scars > 2 Skin: Warm, dry, no erythema, no rash. [] Extremities: No tenderness, no cyanosis, +1/4 bl LE edema Neurologic: Alert, looks to both sides, keeps both arms up against gravity, no nuchal rigidity, per RN was tremulous on arrival/during ekg, this has improved on my exam, GCS [id number] Psychologic: Affect normal, mood normal EKG: EKG: sinus rhythm, 2 EKGs performed in patient with tremors or EKG were being done, EKG questionable atrial flutter, prolonged QTC, no ST elevations or ST depressions Prior EKG from December 2014 reviewed that was normal sinus rhythm, T wave inversion V2 through V5 and lead III Radiology/Procedures: Radiology/Procedures: []IMAGING REPORT Signed PATIENT: KEITH PHILLIPS ACCOUNT: [id number] : 1945 LOCATION: ER AGE: 74 SEX: M EXAM STATUS: REG ER ORD. PHYSICIAN: MATTIE PEPPER DO REASON: ams PROCEDURE: CT HEAD WO CONTRAST EXAM: CT Head without IV contrast INDICATION: Reason: ams / Spl. Instructions: / History: TECHNIQUE: Multi-detector row CT images were obtained of the head without the use of IV contrast. All CT scans performed at this facility utilize dose optimization techniques as appropriate to the exam, including the following: Automated exposure control and adjustment of the mA and/or KV according to patient size (this includes techniques or standardized protocols for targeted exams where dose is indication/reason for exam). COMPARISON: Noncontrast head CT of 05/06/2014 FINDINGS: There is mild motion artifact that degrades detail. BRAIN PARENCHYMA: No evidence of acute intraparenchymal hemorrhage or infarct. Vein shows mild parenchymal volume loss and scattered white matter low density compatible chronic ischemic microvascular change. VENTRICLES & EXTRA-AXIAL SPACES: Ventricles are within normal limits. Basilar cisterns are patent. No pathologic extra-axial fluid collection or mass. ORBITS: Orbital contents are unremarkable. SINUSES: Visualized paranasal sinuses and mastoid air cells are clear. OSSEOUS & SOFT TISSUES: Calvarium and skull base are intact. IMPRESSION: No acute intracranial pathology. Electronically signed by: Brenda Hernandez MD (03/08/2020 11:04 AM) [id number] DICTATED and SIGNED BY: BRENDA HERNANDEZ MD DATE: 03/08/20 [id number] IMAGING REPORT Signed PATIENT: KEITH PHILLIPS ACCOUNT: [id number] : 1945 LOCATION: ER AGE: 74 SEX: M EXAM STATUS: REG ER ORD. PHYSICIAN: MATTIE PEPPER DO REASON: ALTERED MENTAL STATUS PROCEDURE: PORTABLE CHEST 1V EXAM: XR CHEST 1V INDICATION: Reason: ALTERED MENTAL STATUS / Spl. Instructions: / History: . TECHNIQUE: Single view COMPARISON: None FINDINGS: The heart size is normal. The great vessels appear unremarkable. There is no hilar or mediastinal mass. Lungs show mild hypoventilatory changes at the lung bases but no focal infiltrates. There is no pleural effusion or pneumothorax. There are no significant osseous abnormalities. IMPRESSION: Mild hypoventilatory changes at the lung bases. No acute cardiopulmonary process is detected. Electronically signed by: Brenda Hernandez MD (03/08/2020 10:47 AM) [id number] DICTATED and SIGNED BY: BRENDA HERNANDEZ MD DATE: 03/08/20 [id number] 0 Course & Med Decision Making: Course & Med Decision Making Pertinent Labs and Imaging studies reviewed. (See chart for details) Concern for altered mental status likely related to hyperammonemia (save level as last admission), hepatic encephalopathy. Lactic acid is elevated at 2.5 but patient has no fever or leukocytosis. CT head and cxr wnl. Lactulose ordered in ED. U/A pending (RN cathed with 8Fr - has urethral stenosis, approx 400ccs in bladder, 150ccs drained). Pt accepted for admission by Dr. Claire. I have spoken with the patient and/or caregivers (pts' sister is here). I have explained the patient's condition, diagnosis and treatment plan based on the information available to me at this time. I have answered the patient's and/or caregivers questions and answered any concerns. The patient and/or caregivers have as good an understanding of the patient's diagnosis, condition and treatment plan as can be expected at this point. The patient has been stabilized within the capability of the emergency department. The patient will be transported for further care and management or will be moved to an observation or inpatient service. I have communicated with the staff or medical practitioner taking over this patient's care. Dragon Disclaimer: Dragalistair Disclaimer: This electronic medical record was generated, in whole or in part, using a voice recognition dictation system. Departure Departure Impression: Primary Impression: AMS (altered mental status) Additional Impressions: Hepatic encephalopathy Hyperammonemia Disposition: ADMITTED INPT THIS HOSP Admitting Physician: Toño Claire Condition: STABLE Referrals: TOÑO CLAIRE MD (PCP) MATTIE PEPPER DO Mar 08, 2020 10:35
[2020-03-08 10:37] LABS: BASO % 0 % (0-3); EOS # 0.1 x10^3/uL (0.0-0.7); EOS % 2 % (0-3); HEMATOCRIT 43.3 % (39.0-53.0); HEMOGLOBIN 14.9 g/dL (13.0-17.5); LYMPH # 0.8 x10^3/uL (1.0-4.8); LYMPH % 16 % (24-48); MEAN CORPUSCULAR HEMOGLOBIN 33 pg (25-35); MEAN CORPUSCULAR HGB CONC 34 g/dL (31-37); MEAN CORPUSCULAR VOLUME 97 fL (79-100); MONO # 0.3 x10^3/uL (0.0-1.1); MONO % 6 % (0-9); NEUT # 3.8 x10^3/uL (1.8-7.7); NEUT % 76 % (31-73); PLATELET COUNT 79 x10^3/uL (140-400); RED BLOOD COUNT 4.47 x10^6/uL (4.30-5.70); RED CELL DISTRIBUTION WIDTH 13.4 % (11.5-14.5)
[2020-03-08 10:51] LABS: CALCIUM 9.2 mg/dL (8.5-10.1); CREATININE 1.1 mg/dL (0.7-1.3); GFR 65.3; POTASSIUM 4.9 mmol/L (3.5-5.1)
--- NOTE | 2020-03-08 10:51 | RAD ---
EXAM: XR CHEST 1V INDICATION: Reason: ALTERED MENTAL STATUS / Spl. Instructions: / History: . TECHNIQUE: Single view COMPARISON: None FINDINGS: The heart size is normal. The great vessels appear unremarkable. There is no hilar or mediastinal mass. Lungs show mild hypoventilatory changes at the lung bases but no focal infiltrates. There is no pleural effusion or pneumothorax. There are no significant osseous abnormalities. IMPRESSION: Mild hypoventilatory changes at the lung bases. No acute cardiopulmonary process is detected. Electronically signed by: Bala Hernandez MD (03/08/2020 10:47 AM) [id number]
[2020-03-08 10:53] LABS: PROTHROMBIN TIME PATIENT 15.4 SEC (11.7-14.0)
[2020-03-08 10:54] LABS: ACETAMIN < 2.0 mcg/ml (10-30); SALIC < 2.8 mg/dL (2.8-20.0)
[2020-03-08 11:03] LABS: ALBUMIN 3.3 g/dL (3.4-5.0); DIRECT BILIRUBIN 0.6 mg/dL (0.0-0.2); TOTAL BILIRUBIN 2.3 mg/dL (0.2-1.0); TOTAL PROTEIN 5.9 g/dL (6.4-8.2)
--- NOTE | 2020-03-08 11:07 | RAD ---
EXAM: CT Head without IV contrast INDICATION: Reason: ams / Spl. Instructions: / History: TECHNIQUE: Multi-detector row CT images were obtained of the head without the use of IV contrast. All CT scans performed at this facility utilize dose optimization techniques as appropriate to the exam, including the following: Automated exposure control and adjustment of the mA and/or KV according to patient size (this includes techniques or standardized protocols for targeted exams where dose is ind ication/reason for exam). COMPARISON: Noncontrast head CT of 05/06/2014 FINDINGS: There is mild motion artifact that degrades detail. BRAIN PARENCHYMA: No evidence of acute intraparenchymal hemorrhage or infarct. Vein shows mild parenc hymal volume loss and scattered white matter low density compatible chronic ischemic microvascular ch rodrigo. VENTRICLES & EXTRA-AXIAL SPACES: Ventricles are within normal limits. Basilar cisterns are patent. N o pathologic extra-axial fluid collection or mass. ORBITS: Orbital contents are unremarkable. SINUSES: Visualized paranasal sinuses and mastoid air cells are clear. OSSEOUS & SOFT TISSUES: Calvarium and skull base are intact. IMPRESSION: No acute intracranial pathology. Electronically signed by: Bala Hernandez MD (03/08/2020 11:04 AM) [id number]
[2020-03-08] MEDS ORDERED: LACTULOSE 20 GM/30 ML SOLUTION. PO PRN (12:00)
[2020-03-08 12:17] LABS: BILIRUBIN,URINE NEGATIVE (NEG); CLARITY,URINE CLEAR; COLOR,URINE YELLOW; NITRITE,URINE NEGATIVE (NEG); PH,URINE 5.5 (<5.0-8.0); PROTEIN,URINE NEGATIVE (NEG-TRACE); UROBILINOGEN,URINE 0.2 mg/dL (0.2 mg/dL)
[2020-03-08 12:23] LABS: BARBITURATES NEG (NEG); BENZODIAZEPINES NEG (NEG); CANNABINOIDS NEG (NEG); COCAINE NEG (NEG); METHADONE NEG (NEG); OPIATES NEG (NEG); PHENCYCLIDINE NEG (NEG)
[2020-03-08 12:24] LABS: AMPHETAMINE/METHAMPHETAMINE NEG (NEG)
[2020-03-08 12:28] LABS: BACTERIA,URINE 0 /HPF (0-FEW); RBC,URINE 0 /HPF (0-2); WBC,URINE 0 /HPF (0-4)
[2020-03-08 13:50] VITALS: BP 133/51
[2020-03-08 14:34] VITALS: BP 134/53
[2020-03-08 19:00] VITALS: BP 107/46
[2020-03-08 23:06] VITALS: BP 110/56
[2020-03-09 03:00] VITALS: BP 112/48
--- NOTE | 2020-03-09 06:52 | NUR ---
IP: Pt has a hx of ESBL in urine on 10/28/2019. Current UA is negative. Pt to be removed from contact precautions due to no active infection and need to conserve PPE during a pandemic.
[2020-03-09 07:00] VITALS: BP 127/48
--- NOTE | 2020-03-09 10:52 | EKG ---
[facility] [address] [place] [address] Test Date: 2020-03-08 Test Time: 10:03:13 Pat Name: KEITH PHILLIPS Department: Room: Gender: M [employer]: LIBERTAD : 1945 Requested By: MATTIE PEPPER Order Number: [id number] Reading MD: Measurements Intervals Elizabeth Rate: 78 P: 90 IA: 164 QRS: 63 QRSD: 78 T: 38 QT: 430 QTc: 494 Interpretive Statements SINUS RHYTHM LOW LIMB LEAD VOLTAGE QRS(T) CONTOUR ABNORMALITY CONSIDER ANTEROLATERAL MYOCARDIAL DAMAGE PROLONGED QT POSSIBLY ABNORMAL ECG RI6.01 No previous ECG available for comparison
[2020-03-09 11:00] VITALS: BP 117/49
--- NOTE | 2020-03-09 11:36 | NUR ---
SEAN following for discharge planning. Spoke with RN and reviewed chart. SEAN met with pt and pt's family at bedside today. SEAN contacted multiple agencies ([employer], [employer], [employer], [employer], [employer], and [facility]) to see if they accept pt's insurance. Pt currently on room air, regular diet. Pt to discharge home today, 03/09. Pt stated he is fine to have HH but that he does not necessarily need it because he as good family support. Patient stated no preference in HH provider. Patient choice of vendor form completed. SEAN heard back from [place] with [facility] and they do take pt's insurance. SEAN phoned and faxed referral. SW awaiting to see if they can accept pt. SEAN following. Addendum: 03/09/20 at 1353 by JOEL ESTRADA Pt's PCP is Dr. Camacho. Dr. Camacho is affiliated with [facility], so they won't be able to take this pt per Kayleigh. Itzel from [employer] stated they also take pt's insurance but can't see pt as Dr. Camacho is also affiliated with their organization. Referral phoned and faxed to [facility] as they also take pt's insurance. SW awaiting answer as to whether or not they can take this patient. Pt refusing SNU. Addendum: 03/09/20 at 1611 by JOEL ESTRADA Pt accepted for HH with [facility] per David. Discharge orders faxed. Start of care is 03/10. No further SW needs at this time.
--- NOTE | 2020-03-09 14:36 | SNU/HH DC ---
DISCHARGE WITH HOME HEALTH DISCHARGE INFORMATION: Discharge Date: Mar 09, 2020 Final Diagnosis: Problems Medical Problems: (1) AMS (altered mental status) Status: Acute (2) Hyperammonemia Status: Acute Condition on Discharge: Stable CODE STATUS: Code Status: Full HOME HEALTH: Face to Face: I certify this patient is under my care and that I, or a nurse practitioner or physician's clinic assistant working with me, had a face to face encounter that meets the physician face to face encounter requirements with this patient on 03/09/20. Snf For: Assess & Educate Safety, Assess/Skilled Observatiryan M edication Management RN For Eval/Treatment: Yes Physical Therapy For: Evalulation/Treatment Occupational Therapy For: Evaluation/Treatment Pt Meets Homebound Status: Poor coordination w/ amb., Unsteady balance w/ amb,, Frequent falls w/ injury, Poor cognition POST DISCHARGE ORDERS: Activity Instructions for Disc: Activity as tolerated DIET AFTER DISCHARGE: ADA CHECKS AFTER DISCHARGE: Checks after discharge: Check blood press - daily, Check your Temp as needed TREATMENT/EQUIPMENT ORDERS: Adaptive Equipment Issued: None CERTIFICATION STATEMENT: Certification Statement: Certification Statement: Based on the above finding, I certify that this patient is confined to the home and needs intermittent chcf care, physical therapy and/or speech therapy, or continues to need occupational therapy.~ This patient is under my care, and I have initiated the establishment of the plan of care.~ This patient will be followed by myself or a community physician who will periodically review the plan of care. Home Meds Active Scripts Oxybutynin Chloride (OXYBUTYNIN CHLORIDE) 5 Mg Tablet, 5 MG PO [id number] for urge incontinence for 30 Days, #90 TAB Prov:TOÑO CLAIRE MD 10/31/19 Pioglitazone Hcl (ACTOS) 15 Mg Tablet, 30 MG PO DAILY for diabetes for 30 Days, #60 TAB Prov:TOÑO CLAIRE MD 10/31/19 Glipizide (GLIPIZIDE) 5 Mg Tablet, 10 MG PO BIDBFRMEAL for diabetes for 30 Days, #120 TAB Prov:TOÑO CLAIRE MD 10/31/19 Pantoprazole Sodium (PANTOPRAZOLE SODIUM ) 40 Mg Tablet.dr, 40 MG PO DAILYAC for gerd for 30 Days, #30 TAB.SR Prov:TOÑO CLAIRE MD 10/31/19 Furosemide (FUROSEMIDE) 40 Mg Tablet, 40 MG PO DAILY for ascites for 30 Days, #30 TAB Prov:TOÑO CLAIRE MD 10/31/19 Lactulose (LACTULOSE) 20 Gm/30 Ml Solution, 15 GM PO QID for hepatic encephalopathy for 30 Days, #120 MISC Prov:TOÑO CLAIRE MD 10/31/19 Spironolactone (ALDACTONE) 25 Mg Tablet, 50 MG PO BID for ascites for 30 Days, #120 TAB Prov:TOÑO CLAIRE MD 10/31/19 Lisinopril (LISINOPRIL) 5 Mg Tablet, 5 MG PO DAILY for hpt for 30 Days, #30 TAB Prov:TOÑO CLAIRE MD 10/31/19 Rifaximin (XIFAXAN) 550 Mg Tablet, 550 MG PO TID for hepatic encephalopathy for 30 Days, #90 TAB Prov:TOÑO CLAIRE MD 10/31/19 TOÑO CLAIRE MD Mar 09, 2020 14:36
[2020-03-09 15:19] VITALS: BP 120/52
--- NOTE | 2020-03-09 15:43 | NUR ---
Discharge Note: PT DISCHARGED HOME WITH [facility]. PT LEFT FACILITY VIA PRIVATE VEHICLE WITH AND SISTER AT 1532. PT STABLE AND ALERT AT BASELINE UPON DISCHARGE. PT PIV REMOVED FROM R AC AND R HAND WITHOUT COMPLICATIONS, BANDAGE APPLIED. PT SENIOR TERADATA DEVELOPER REMOVED. PT AND EDUCATED ABOUT DISCHARGE INSTRUCTIONS, DISCHARGE MEDICATIONS, AND FOLLOW-UP INSTRUCTIONS, INFORMED THAT DR[facility] CLAIRE [facility] GET HIS XIFAXAN MEDICATION RESTARTED/COVERED. PT AND FAMILY VOICED NO CONCERNS AT THIS TIME. PT LEFT WITH ALL PERSONAL BELONGINGS. ROBSON PHILLIPS Discharge instructions and discharge home medications reviewed with Patient and a copy given. All questions have been answered and understanding verbalized.
--- NOTE | 2020-03-09 16:24 | HP ---
ADMIT DATE: 03/09/2020 CHIEF COMPLAINT AND HISTORY OF PRESENT ILLNESS: This is a 74-year-old male is well known to me from followup in the office over the years. He has a long active history of cirrhosis and hepatic encephalopathy. He was admitted at this point in time because of altered mental status, found to have an elevated ammonia level and was back to his baseline state by the time of my examination following morning. The biggest problem in this whole scenario is the lactulose, which I believe he takes on a fairly regular basis, but did very well. He was able to afford Xifaxan and got up from the [facility], but once he is out, he is readmitted over and over for hepatic encephalopathy and we will work towards remedying this if it is possible to getting the medication that he needs upon discharge. PAST MEDICAL HISTORY: Remarkable for diabetes, appendectomy, hip replacement, right knee scope. MEDICATIONS: Brought with the patient, listed on the computer, have been addressed. ALLERGIES: He has no known drug allergies. SOCIAL HISTORY: He is a former smoker, former drinker, does not abuse drugs. FAMILY HISTORY: Noncontributory. REVIEW OF SYSTEMS: Remarkable for his major concern about wanting to go home. He does complain about his balance, but it is chronic and he has to use a walker at home. Otherwise, he has no specific complaints on complete review of systems. PHYSICAL EXAMINATION: GENERAL: He is a well-developed, well-nourished male in no acute distress. VITAL SIGNS: Stable. He is afebrile. HEAD, EYES, EARS, NOSE AND THROAT: Unremarkable. NECK: Supple, without adenopathy or thyromegaly. CHEST: Clear to auscultation and percussion. HEART: Regular rate and rhythm without S3, S4 or murmur. ABDOMEN: Soft, nontender, without hepatomegaly or masses. EXTREMITIES: Without cyanosis, clubbing, edema. NEUROLOGIC: Intact. LABORATORY DATA: Initial laboratory is remarkable for a CBC that shows a thrombocytopenia of 79,000 consistent with his known cirrhosis. Elevated blood sugars have been present since admission and he will be restarted on his home meds for the same. Ammonia level was elevated at 72 on admission. Total bilirubin is slightly high at 2.3. He initially had a high lactic acid of 2.5, but came down to normal with hydration. IMPRESSION: 1. Hepatic encephalopathy, causing altered mental status. 2. Other problems listed above. PLAN: Lactulose therapy. Time, once again, once we can get him at that point for discharge, he will need his Xifaxan going forward and we will work on this in this regard. TOÑO CLAIRE MD DR: JAGDISH/jason JOB#: [id number] / [id number]
--- NOTE | 2020-06-18 15:26 | PDOC1 ---
History & Physical: Date of Service: DOS: 03-09-2020 H&P: PATIENT: KEITH PHILLIPS ACCOUNT: [id number] : 1945 LOC: [address] [place] [address] AGE: 74 SEX: M STATUS: DIS IN LOCATION: [address] [place] [address] ADMIT DATE: 03/09/2020 CHIEF COMPLAINT AND HISTORY OF PRESENT ILLNESS: This is a 74-year-old male is well known to me from followup in the office over the years. He has a long active history of cirrhosis and hepatic encephalopathy. He was admitted at this point in time because of altered mental status, found to have an elevated ammonia level and was back to his baseline state by the time of my examination following morning. The biggest problem in this whole scenario is the lactulose, which I believe he takes on a fairly regular basis, but did very well. He was able to afford Xifaxan and got up from the [facility], but once he is out, he is readmitted over and over for hepatic encephalopathy and we will work towards remedying this if it is possible to getting the medication that he needs upon discharge. PAST MEDICAL HISTORY: Remarkable for diabetes, appendectomy, hip replacement, right knee scope. MEDICATIONS: Brought with the patient, listed on the computer, have been addressed. ALLERGIES: He has no known drug allergies. SOCIAL HISTORY: He is a former smoker, former drinker, does not abuse drugs. FAMILY HISTORY: Noncontributory. REVIEW OF SYSTEMS: Remarkable for his major concern about wanting to go home. He does complain about his balance, but it is chronic and he has to use a walker at home. Otherwise, he has no specific complaints on complete review of systems. PHYSICAL EXAMINATION: GENERAL: He is a well-developed, well-nourished male in no acute distress. VITAL SIGNS: Stable. He is afebrile. HEAD, EYES, EARS, NOSE AND THROAT: Unremarkable. NECK: Supple, without adenopathy or thyromegaly. CHEST: Clear to auscultation and percussion. HEART: Regular rate and rhythm without S3, S4 or murmur. ABDOMEN: Soft, nontender, without hepatomegaly or masses. EXTREMITIES: Without cyanosis, clubbing, edema. NEUROLOGIC: Intact. LABORATORY DATA: Initial laboratory is remarkable for a CBC that shows a thrombocytopenia of 79,000 consistent with his known cirrhosis. Elevated blood sugars have been present since admission and he will be restarted on his home meds for the same. Ammonia level was elevated at 72 on admission. Total bilirubin is slightly high at 2.3. He initially had a high lactic acid of 2.5, but came down to normal with hydration. IMPRESSION: 1. Hepatic encephalopathy, causing altered mental status. 2. Other problems listed above. PLAN: Lactulose therapy. Time, once again, once we can get him at that point for discharge, he will need his Xifaxan going forward and we will work on this in this regard. TOÑO Andrea. MD DAKOTAH DR: JAGDISH/jason JOB#: [id number] / [id number] DICTATED BY: TOÑO CLAIRE MD 03/09/20 1431 SIGNED BY: TOÑO CLAIRE MD 03/10/20 1653 cc: TOÑO CLAIRE MD ~MTF0 28 Page of TOÑO CLAIRE MD Jun 18, 2020 15:26
== END 2020-03-09 15:32 | disposition home health service (06) | DRG 443 ==
LOC: ER 09:54 → 5 NORTH 12:27
PROVIDERS: ADMIT Family Medicine; ATTEND Family Medicine
DX: K72.90 Hepatic failure, unspecified without coma (principal); E11.9 Type 2 diabetes mellitus without complications; K74.60 Unspecified cirrhosis of liver; W06.XXXA Fall from bed, initial encounter; Z87.891 Personal history of nicotine dependence; Z90.49 Acquired absence of other specified parts of digestive tract; Z96.649 Presence of unspecified artificial hip joint; Z79.899 Other long term (current) drug therapy; Y93.89 Activity, other specified; Y92.89 Other specified places as the place of occurrence of the external cause; Y99.8 Other external cause status
CPT/HCPCS: 36415; 70450; 71045; 80048; 80076; 80307; 80329; 81001; 82140; 82550; 82962; 83605; 83735; 83880; 84484; 85025; 85610; 85730; 87040; 93005; 99285; G0378; G0480

== ENCOUNTER 2020-03-23 14:15 | Inpatient (IN) | payer MEDICARE ==
[~2020-03-23] VITALS: Ht 170.2 cm; Wt 77.5 kg
--- NOTE | 2020-03-23 14:33 | ED.ADGEN ---
Past Medical History Past Medical History: Arthritis, Diabetes-Type II, Liver Disease Past Surgical History: Appendectomy, Hip Replacement Additional Past Surgical Histo: right knee scope Smoking Status: Unknown if ever smoked Alcohol Use: Sober Drug Use: None General Adult EDM: Chief Complaint: ALTERED MENTAL STATUS HPI: HPI: Patient is a 75 year old male who arrives via EMS after a reported change in his mental status. The patient was observed by family to have this change at 6:00 this morning. The patient has a history of hepatic encephalopathy and was evaluated several weeks ago for similar incident. Upon questioning the patient he does appear to be uncooperative however he states to me that he is not in pain. Additionally is moving all his extremities. I have been informed the family is in route. He is maintaining his airway and while he does appear to be uncomfortable he is not in extremis or acute distress. Review of Systems: Review of Systems: Unable to ascertain given the patient's medical condition. Current Medications: Current Medications Medications (Trade) Dose Ordered Sig/Emily Start Time Stop Time Status Last Admin Dose Admin Lactulose (Lactulose) 20 gm PRN DAILY PRN 03/23/20 17:00 Rifaximin (Xifaxan) 550 mg 1X ONCE 03/23/20 17:30 03/23/20 17:31 Allergies: Allergies: Allergies Coded Allergies Type Severity Reaction Last Updated Verified I S O L A T I O N *CONTACT* Allergy Unknown 11/06/19 Yes No Known Medication Allergies Allergy Unknown 11/06/19 Yes Physical Exam: PE: Constitutional: Well developed, well nourished, no acute distress, non-toxic appearance. [] HENT: Normocephalic, atraumatic, bilateral external ears normal, oropharynx moist, no oral exudates, nose normal. [] Eyes: PERRLA, EOMI, conjunctiva normal, no discharge. [] Neck: Normal range of motion, no tenderness, supple, no stridor. [] Cardiovascular:Heart rate regular rhythm, no murmur [] Lungs & Thorax: Bilateral breath sounds clear to auscultation [] Abdomen: Bowel sounds normal, soft, no tenderness, no masses, no pulsatile masses. [] Skin: Warm, dry, no erythema, no rash. [] Back: No tenderness, no CVA tenderness. [] Extremities: No tenderness, no cyanosis, no clubbing, ROM intact, no edema. [] Neurologic: Alert and oriented X 3, normal motor function, normal sensory function, no focal deficits noted. [] Psychologic: Patient appears to be agitated and mildly combative. [] Current Patient Data: Labs: Laboratory Tests Test 03/23/20 14:25 03/23/20 15:20 03/23/20 15:26 Sodium Level 140 mmol/L (136-145) Potassium Level 4.3 mmol/L (3.5-5.1) Chloride Level 107 mmol/L (98-107) Carbon Dioxide Level 20 mmol/L (21-32) L Anion Gap 13 (6-14) Blood Urea Nitrogen 20 mg/dL (8-26) Creatinine 1.0 mg/dL (0.7-1.3) Estimated GFR (Cockcroft-Gault) 72.6 Glucose Level 166 mg/dL (70-99) H Calcium Level 9.1 mg/dL (8.5-10.1) Troponin I Quantitative < 0.017 ng/mL (0.000-0.055) White Blood Count 6.3 x10^3/uL (4.0-11.0) Red Blood Count 4.50 x10^6/uL (4.30-5.70) Hemoglobin 15.0 g/dL (13.0-17.5) Hematocrit 43.8 % (39.0-53.0) Mean Corpuscular Volume 97 fL (79-100) Mean Corpuscular Hemoglobin 33 pg (25-35) Mean Corpuscular Hemoglobin Concent 34 g/dL (31-37) Red Cell Distribution Width 13.4 % (11.5-14.5) Platelet Count 65 x10^3/uL (140-400) L Neutrophils (%) (Auto) 74 % (31-73) H Lymphocytes (%) (Auto) 16 % (24-48) L Monocytes (%) (Auto) 9 % (0-9) Eosinophils (%) (Auto) 1 % (0-3) Basophils (%) (Auto) 0 % (0-3) Neutrophils # (Auto) 4.6 x10^3/uL (1.8-7.7) Lymphocytes # (Auto) 1.0 x10^3/uL (1.0-4.8) Monocytes # (Auto) 0.6 x10^3/uL (0.0-1.1) Eosinophils # (Auto) 0.1 x10^3/uL (0.0-0.7) Basophils # (Auto) 0.0 x10^3/uL (0.0-0.2) Ammonia 99 mcmol/L (11-34) H Glucose (Fingerstick) 160 mg/dL (70-99) H Laboratory Tests 03/23/20 15:20 Laboratory Tests 03/23/20 14:25 Vital Signs: Vital Signs Date Time Temp Pulse Resp B/P (MAP) Pulse Ox O2 Delivery O2 Flow Rate FiO2 03/23/20 15:52 66 99 03/23/20 14:15 98.1 16 128/79 (95) Room Air 98.1 EKG: EKG: [] EKG was obtained at 1610 hrs. and revealed a sinus rhythm with a ventricular rate of 69 bpm. There are no acute ST/T wave changes to denote ischemia. Intervals are normal without ectopy. Heart Score: Risk Factors: Risk Factors: DM, Current or recent (<one month) smoker, HTN, HLP, family history of CAD, obesity. Risk Scores: Score 0 - 3: 2.5% MACE over next 6 weeks - Discharge Home Score 4 - 6: 20.3% MACE over next 6 weeks - Admit for Clinical Observation Score 7 - 10: 72.7% MACE over next 6 weeks - Early Invasive Strategies Radiology/Procedures: Radiology/Procedures: [] Impression: [facility] [address] [place] [address] IMAGING REPORT Signed PATIENT: KEITH PHILLIPS ACCOUNT: [id number] : 1945 LOCATION: ER AGE: 75 SEX: M EXAM STATUS: REG ER ORD. PHYSICIAN: DAISY TSE DO REASON: Altered mental status PROCEDURE: CT CODE STROKE HEAD WO CT STROKE HEAD W/O History: Reason: Altered mental status / Spl. Instructions: / History: Comparison: March 08, 2020 Technique: Noncontrast CT imaging was performed of the head. Exposure: One or more of the following individualized dose reduction techniques were utilized for this examination: 1. Automated exposure control 2. Adjustment of the mA and/or kV according to patient size 3. Use of iterative reconstruction technique. Findings: Motion degraded evaluation. No intracranial hemorrhage. No mass effect. No hydrocephalus. Extra-axial spaces are unremarkable. Imaged orbits are unremarkable. Imaged paranasal sinuses and mastoid air cells are clear. No acute calvarial fracture. Chronic nasal bone deformity. Impression: 1. No acute intracranial abnormality. FOR INTERNAL CODING PURPOSES Critical result: Findings discussed with Dr. Tse at 03/23/2020 2:48 PM. RESULT CODE: (C) Electronically signed by: Jose Horta DO (03/23/2020 2:52 PM) [id number] DICTATED and SIGNED BY: JOSE HORTA DO DATE: 03/23/[id number] [facility] [address] [place] [address] IMAGING REPORT Signed PATIENT: KEITH PHILLIPS ACCOUNT: [id number] : 1945 LOCATION: ER AGE: 75 SEX: M EXAM STATUS: REG ER ORD. PHYSICIAN: DAISY TSE DO REASON: ams PROCEDURE: CHEST AP ONLY EXAMINATION: XR CHEST 1V CLINICAL HISTORY: Altered mental status EXAM DATE/TIME: 03/23/2020 4:30 PM COMPARISON: 03/08/2020 FINDINGS: Lines, Tubes, and Devices: None. Cardiomediastinal Silhouette: Within normal limits. Lungs and Pleura: No evidence of focal airspace consolidation or pleural effusion. Pulmonary vasculature unremarkable. Old calcified granulomatous. Bones and Soft Tissues: Degenerative changes of the thoracic spine. IMPRESSION: No evidence of acute cardiopulmonary abnormality or significant interval change. Electronically signed by: Santos Brar DO (03/23/2020 4:59 PM) [id number] DICTATED and SIGNED BY: SANTOS BRAR DO DATE: 03/23/20 [id number] Course & Med Decision Making: Course & Med Decision Making Pertinent Labs and Imaging studies reviewed. (See chart for details) [] Chon Disclaimer: Chon Disclaimer: This electronic medical record was generated, in whole or in part, using a voice recognition dictation system. Departure Departure Impression: Primary Impression: Hepatic encephalopathy Disposition: ADMITTED INPT THIS HOSP Admitting Physician: Toño Claire Condition: GOOD Referrals: TOÑO CLAIRE MD (PCP) DAISY TSE DO Mar 23, 2020 14:33
--- NOTE | 2020-03-23 14:54 | RAD ---
CT STROKE HEAD W/O History: Reason: Altered mental status / Spl. Instructions: / History: Comparison: March 08, 2020 Technique: Noncontrast CT imaging was performed of the head. Exposure: One or more of the following individualized dose reduction techniques were utilized for thi s examination: 1. Automated exposure control 2. Adjustment of the mA and/or kV according to patient size 3. Use of iterative reconstruction technique. Findings: Motion degraded evaluation. No intracranial hemorrhage. No mass effect. No hydrocephalus. Extra-axial spaces are unremarkable. Imaged orbits are unremarkable. Imaged paranasal sinuses and mastoid air cells are clear. No acute ca lvarial fracture. Chronic nasal bone deformity. Impression: 1. No acute intracranial abnormality. FOR INTERNAL CODING PURPOSES Critical result: Findings discussed with Dr. Keita at 03/23/2020 2:48 PM. RESULT CODE: (C) Electronically signed by: Jose Horta DO (03/23/2020 2:52 PM) [id number]
[2020-03-23 15:01] LABS: CALCIUM 9.1 mg/dL (8.5-10.1); GFR 72.6; POTASSIUM 4.3 mmol/L (3.5-5.1)
[2020-03-23 15:32] LABS: BASO % 0 % (0-3); EOS # 0.1 x10^3/uL (0.0-0.7); EOS % 1 % (0-3); HEMATOCRIT 43.8 % (39.0-53.0); LYMPH % 16 % (24-48); MEAN CORPUSCULAR HEMOGLOBIN 33 pg (25-35); MEAN CORPUSCULAR HGB CONC 34 g/dL (31-37); MEAN CORPUSCULAR VOLUME 97 fL (79-100); MONO # 0.6 x10^3/uL (0.0-1.1); MONO % 9 % (0-9); NEUT # 4.6 x10^3/uL (1.8-7.7); NEUT % 74 % (31-73); PLATELET COUNT 65 x10^3/uL (140-400); RED CELL DISTRIBUTION WIDTH 13.4 % (11.5-14.5); WHITE BLOOD COUNT 6.3 x10^3/uL (4.0-11.0)
--- NOTE | 2020-03-23 16:39 | EKG ---
[facility] [address] [place] [address] Test Date: 2020-03-23 Test Time: 16:10:06 Pat Name: KEITH PHILLIPS Department: Room: Gender: M Examination Scorer: : 1945 Requested By: DAISY TSE Order Number: [id number] Reading MD: Measurements Intervals Pinole Rate: 69 P: 90 OR: 152 QRS: 54 QRSD: 94 T: 26 QT: 426 QTc: 458 Interpretive Statements SINUS RHYTHM LOW LIMB LEAD VOLTAGE NO SPECIFIC ECG ABNORMALITIES RI6.02 No previous ECG available for comparison
[2020-03-23] MEDS ORDERED: LACTULOSE 20 GM/30 ML SOLUTION. PO PRN (17:00)
--- NOTE | 2020-03-23 17:01 | RAD ---
EXAMINATION: XR CHEST 1V CLINICAL HISTORY: Altered mental status EXAM DATE/TIME: 03/23/2020 4:30 PM COMPARISON: 03/08/2020 FINDINGS: Lines, Tubes, and Devices: None. Cardiomediastinal Silhouette: Within normal limits. Lungs and Pleura: No evidence of focal airspace consolidation or pleural effusion. Pulmonary vasculat ure unremarkable. Old calcified granulomatous. Bones and Soft Tissues: Degenerative changes of the thoracic spine. IMPRESSION: No evidence of acute cardiopulmonary abnormality or significant interval change. Electronically signed by: Santos Devries DO (03/23/2020 4:59 PM) [id number]
[2020-03-23] MEDS ORDERED: rifAXIMin 550 MG TABLET PO ONE (17:30)
[2020-03-23] MEDS ORDERED: ONDANSETRON PF 4 MG/2 ML VIAL. IV PRN (18:15)
[2020-03-23 18:41] VITALS: BP 110/74
[2020-03-23 23:14] VITALS: BP 107/48
[2020-03-24 03:41] VITALS: BP 104/48
[2020-03-24 07:00] VITALS: BP 120/55
--- NOTE | 2020-03-24 08:06 | HP ---
ADMIT DATE: 03/24/2020 CHIEF COMPLAINT AND HISTORY OF PRESENT ILLNESS: This 75-year-old male is well known to me from followup in the office. The patient was brought to the Emergency Room yesterday with the change in mental status. The patient was found to have what appeared to be hepatic encephalopathy once again, although rest of workup was essentially negative including imaging of the head. I actually saw him in the office this prior week and had driven to the [facility] here in [place], [place] to find out why he was not getting his Xifaxan. They initially thought to have been mailed to him, but then figured out that he only get a 30-day supply instead of a 90-day supply and he was supposed to be getting more through the mail and my guess is that those have never arrived yet at this point and thus the reason for hepatic encephalopathy and yet another hospital admission. PAST MEDICAL HISTORY: Remarkable for cirrhosis, hepatic encephalopathy, diabetes, arthritis, multiple falls. PAST SURGICAL HISTORY: Remarkable for right knee scope, prior hip replacement, appendectomy. MEDICATIONS: Brought with the patient, listed on the computer and have been addressed. ALLERGIES: He has no known drug allergies. SOCIAL HISTORY: He is a former smoker, former drinker, does not use drugs. , lives at home with his . FAMILY HISTORY: Noncontributory. REVIEW OF SYSTEMS: Remarkable for him still being mildly confused as he cannot remember whether or not the pills have arrived from the [place]. He, however, does know who I am this morning and is in no acute distress. PHYSICAL EXAMINATION: GENERAL: He is a well-developed, well-nourished male, mildly confused. VITAL SIGNS: Stable. He is afebrile. HEAD, EYES, EARS, NOSE AND THROAT: Unremarkable. There is no icterus. NECK: Supple, without adenopathy or thyromegaly. CHEST: Clear to auscultation. HEART: Regular rate and rhythm without S3, S4 or murmur. ABDOMEN: Soft, nontender, without hepatosplenomegaly or masses. EXTREMITIES: Without cyanosis, clubbing, edema. NEUROLOGIC: Nonfocal. LABORATORY DATA: Initial labs were remarkable primarily for an elevated ammonia level. Chest x-ray and CT scanning of the head showed no acute changes. IMPRESSION: 1. Hepatic encephalopathy. 2. Other problems listed above. PLAN: Continue present care. I would expect to improve completely back on his Xifaxan in addition to his lactulose. I believe he has home health seeing him at home and I will need to have them investigate for me when he gets home as to whether or not Xifaxan is in the house or not or would anticipate that he will be readmitted within the next week or so once again. TOÑO CLAIRE MD DR: JAGDISH/jason JOB#: [id number] / [id number]
[2020-03-24 11:00] VITALS: BP 107/56
--- NOTE | 2020-03-24 15:00 | NUR ---
SW following for discharge planning. Spoke with RN and reviewed chart. Pt from home with and HH. Pt on room air, IV Zofran, cardiac diet. Pt confused and COVID pending. SW called pt's to ask about HH provider and she asked SW to contact pt's sister as she speaks limited Bermudian. SW attempted to call pt's sister, no answer or ability to leave a message. SW following.
[2020-03-24 15:02] VITALS: BP 103/52
[2020-03-24 19:00] VITALS: BP 114/50
[2020-03-24 23:12] VITALS: BP 115/54
[2020-03-25 03:32] VITALS: BP 114/49
[2020-03-25 07:00] VITALS: BP 110/41
--- NOTE | 2020-03-25 10:06 | PN ---
DATE: 03/25/2020 LOCATION: He is in room 652. SUBJECTIVE: The patient is definitely still confused and encephalopathic this morning. I reviewed his medication list expecting to see Xifaxan on there was agreed when he was in the Emergency Room to restart the same, but it was not done and is likely the reason for no significant improvement today. This was restarted along with his regular home meds this morning and hopefully we will see improvement over the next 24 hours. I am going to be meeting with his soon here regarding the medications and whether [facility] to be [facility] discharged hopefully as soon as tomorrow. OBJECTIVE: VITAL SIGNS: Stable. He is afebrile. He remains encephalopathic. CHEST: Clear. HEART: Regular. ABDOMEN: Benign. IMPRESSION: Hepatic encephalopathy. PLAN: Xifaxan is added back, started this morning. We will recheck ammonia levels in the morning. Would expect that he is going to improve and hopefully can be dismissed at that point in time. TOÑO CLAIRE MD DR: JAGDISH/jason JOB#: [id number] / [id number]
[2020-03-25] MEDS: PIOGLITAZONE 15 MG TABLET. PO SCH (10:39)
[2020-03-25] MEDS: PANTOPRAZOLE 40 MG TABLET.DR. PO SCH (10:39)
[2020-03-25] MEDS: FUROSEMIDE 40 MG TABLET. PO SCH (10:39)
[2020-03-25] MEDS: glipiZIDE 5 MG TABLET PO SCH ×2 (10:39→17:21)
[2020-03-25] MEDS: rifAXIMin 550 MG TABLET PO SCH ×2 (10:39→20:28)
[2020-03-25] MEDS: SPIRONOLACTONE 25 MG TABLET PO SCH ×2 (10:39→20:28)
[2020-03-25] MEDS: LISINOPRIL 5 MG TABLET. PO SCH (10:40)
[2020-03-25 11:43] VITALS: BP 117/51
[2020-03-25 15:00] VITALS: BP 108/54
--- NOTE | 2020-03-25 17:01 | NUR ---
SW following for discharge planning. Spoke with RN and reviewed chart. Possible discharge home tomorrow, 03/26 with family and resumption of HH. SW following.
[2020-03-25 19:00] VITALS: BP 128/52
[2020-03-25 23:00] VITALS: BP 138/70
[2020-03-26 03:00] VITALS: BP 120/57
[2020-03-26 07:00] VITALS: BP 122/59
[2020-03-26] MEDS ORDERED: RIFA550T4 PO (08:06)
--- NOTE | 2020-03-26 08:08 | SNU/HH DC ---
DISCHARGE WITH HOME HEALTH DISCHARGE INFORMATION: Discharge Date: Mar 26, 2020 Condition on Discharge: Stable CODE STATUS: Code Status: Full HOME HEALTH: Face to Face: I certify this patient is under my care and that I, or a nurse practitioner or luiza allison's operations and intelligence assistant working with me, had a face to face encounter that meets the physician face to face encounter requirements with this patient on 03/26/20. Mcc For: Assess & Educate Safety, Assess/Skilled Observatio, Di abetic Care RN For Eval/Treatment: Yes Physical Therapy For: Evalulation/Treatment Occupational Therapy For: Evaluation/Treatment Pt Meets Homebound Status: Poor coordination w/ amb., Unsteady balance w/ amb,, Extreme weakness w/ amb., Poor cognition POST DISCHARGE ORDERS: Activity Instructions for Disc: No restrictions, Resume previous activity, Activity as tolerated Weight Bearing Status after Di: No restrictions, Full weight bearing, As tolerated DIET AFTER DISCHARGE: ADA Wound/Incision Care: No wound care needed CHECKS AFTER DISCHARGE: Checks after discharge: Check blood press - daily, Check blood sugar, ac/hs, Check your Temp as needed TREATMENT/EQUIPMENT ORDERS: Adaptive Equipment Issued: None CERTIFICATION STATEMENT: Certification Statement: Certification Statement: Based on the above finding, I certify that this patient is confined to the home and needs intermittent custodial care, physical therapy and/or speech therapy, or continues to need occupational therapy.~ This patient is under my care, and I have initiated the establishment of the plan of care.~ This patient will be followed by myself or a community physician who will periodically review the plan of care. Home Meds Active Scripts Oxybutynin Chloride (OXYBUTYNIN CHLORIDE) 5 Mg Tablet, 5 MG PO [id number] for urge incontinence for 30 Days, #90 TAB Prov:TOÑO CLAIRE MD 10/31/19 Pioglitazone Hcl (ACTOS) 15 Mg Tablet, 30 MG PO DAILY for diabetes for 30 Days, #60 TAB Prov:TOÑO CLAIRE MD 10/31/19 Glipizide (GLIPIZIDE) 5 Mg Tablet, 10 MG PO BIDBFRMEAL for diabetes for 30 Days, #120 TAB Prov:TOÑO CLAIRE MD 10/31/19 Pantoprazole Sodium (PANTOPRAZOLE SODIUM ) 40 Mg Tablet.dr, 40 MG PO DAILYAC for gerd for 30 Days, #30 TAB.SR Prov:TOÑO CLAIRE MD 10/31/19 Furosemide (FUROSEMIDE) 40 Mg Tablet, 40 MG PO DAILY for ascites for 30 Days, #30 TAB Prov:TOÑO CLAIRE MD 10/31/19 Lactulose (LACTULOSE) 20 Gm/30 Ml Solution, 15 GM PO QID for hepatic encephalopathy for 30 Days, #120 MISC Prov:TOÑO CLAIRE MD 10/31/19 Spironolactone (ALDACTONE) 25 Mg Tablet, 50 MG PO BID for ascites for 30 Days, #120 TAB Prov:TOÑO CLAIRE MD 10/31/19 Lisinopril (LISINOPRIL) 5 Mg Tablet, 5 MG PO DAILY for hpt for 30 Days, #30 TAB Prov:TOÑO CLAIRE MD 10/31/19 Rifaximin (XIFAXAN) 550 Mg Tablet, 550 MG PO TID for hepatic encephalopathy for 30 Days, #90 TAB Prov:TOÑO CLAIRE MD 10/31/19 TOÑO CLAIRE MD Mar 26, 2020 08:08
[2020-03-26] MEDS: glipiZIDE 5 MG TABLET PO SCH (08:25)
[2020-03-26] MEDS: FUROSEMIDE 40 MG TABLET. PO SCH (08:25)
[2020-03-26] MEDS: PIOGLITAZONE 15 MG TABLET. PO SCH (08:25)
[2020-03-26] MEDS: rifAXIMin 550 MG TABLET PO SCH (08:25)
[2020-03-26 08:26] VITALS: BP 122/59
[2020-03-26] MEDS: SPIRONOLACTONE 25 MG TABLET PO SCH (08:26)
[2020-03-26] MEDS: LISINOPRIL 5 MG TABLET. PO SCH (08:26)
[2020-03-26] MEDS: PANTOPRAZOLE 40 MG TABLET.DR. PO SCH (08:26)
--- NOTE | 2020-03-26 09:19 | NUR ---
SEAN following for discharge planning. Spoke with RN and reviewed chart. Pt to discharge home today, 03/26 with [facility]. Pt COVID negative and on room air. Spoke with pt's sister Dulce ([phone]) who will pick pt up around 10am today for discharge. Discharge orders phoned and faxed to [facility]. SEAN LVM for admissions to ask about start of care. No further SW needs at this time. Addendum: 03/26/20 at 1029 by JOEL ESTRADA SEAN confirmed with Crystal from [facility] that orders were received and services will resume.
--- NOTE | 2020-03-26 10:40 | NUR ---
Discharge Note: KEITH PHILLIPS [address] [place] [address] Discharge instructions and discharge home medications reviewed with Patient and a copy given. All questions have been answered and understanding verbalized. The following instructions and handouts were given: f/u with pcp within one week. Discontinued lines and drains: Peripheral IV intact. Patient discharged to Home w/services with Family Member via Wheelchair.
--- NOTE | 2020-03-26 19:13 | DS ---
DATE OF DISCHARGE: 03/26/2020 PRIMARY DIAGNOSIS: Hepatic encephalopathy. ADDITIONAL DIAGNOSES: Cirrhosis of the liver, diabetes, multiple falls and arthritis. CHIEF COMPLAINT AND HISTORY OF PRESENT ILLNESS: This 75-year-old male well known to me from followup in the office. The patient was brought to the Emergency Room with change in mental status, found to be what after exhaustive workup appeared to be hepatic encephalopathy with elevated ammonia levels. He was admitted for the same, started on his home lactulose and restarted on Xifaxan, which he has not been able to obtain from the [facility] recently. SUMMARY OF STAY: The patient was admitted, cleared gradually and was back basically his regular state of mentation on the day of discharge. I did drive 1 day last week after office hours up to the [facility] on [address] to express my frustration of him not having his medicines. They initially thought he had received 3-month supply in January, but called me back later in the day saying that he did only got a 30-day supply and he would be out and it should be on [employer], but they would expedite getting another one. I had the office visit with his and sister the day prior to discharge who stated that the medicine had come in the mail on that day. I anticipate after discharge that he will be on Xifaxan and we will not have the 3rd unnecessary admission because of lack of medication. I have also instructed them within 2 weeks of him being out of the medicine that all of [facility] need [facility]. He did receive a 2-month supply again the day prior to discharge. DISPOSITION: The patient is discharged to home. DIET: ADA diet. ACTIVITY: As tolerated, office in 1 week. DISCHARGE MEDICATIONS: Listed on the med rec and have been addressed. TOÑO CLAIRE MD DR: JAGDISH/jason JOB#: [id number] / [id number]
--- NOTE | 2020-06-18 15:16 | PDOC1 ---
History & Physical: Date of Service: DOS: 03-24-2020 H&P: PATIENT: KEITH PHILLIPS ACCOUNT: [id number] : 1945 LOC: [address] [place] [address] AGE: 75 SEX: M STATUS: ADM IN LOCATION: [address] [place] [address] ADMIT DATE: 03/24/2020 CHIEF COMPLAINT AND HISTORY OF PRESENT ILLNESS: This 75-year-old male is well known to me from followup in the office. The patient was brought to the Emergency Room yesterday with the change in mental status. The patient was found to have what appeared to be hepatic encephalopathy once again, although rest of workup was essentially negative including imaging of the head. I actually saw him in the office this prior week and had driven to the [facility] center here in [place], [place] to find out why he was not getting his Xifaxan. They initially thought to have been mailed to him, but then figured out that he only get a 30-day supply instead of a 90-day supply and he was supposed to be getting more through the mail and my guess is that those have never arrived yet at this point and thus the reason for hepatic encephalopathy and yet another hospital admission. PAST MEDICAL HISTORY: Remarkable for cirrhosis, hepatic encephalopathy, diabetes, arthritis, multiple falls. PAST SURGICAL HISTORY: Remarkable for right knee scope, prior hip replacement, appendectomy. MEDICATIONS: Brought with the patient, listed on the computer and have been addressed. ALLERGIES: He has no known drug allergies. SOCIAL HISTORY: He is a former smoker, former drinker, does not use drugs. , lives at home with his . FAMILY HISTORY: Noncontributory. REVIEW OF SYSTEMS: Remarkable for him still being mildly confused as he cannot remember whether or not the pills have arrived from the [place]. He, however, does know who I am this morning and is in no acute distress. PHYSICAL EXAMINATION: GENERAL: He is a well-developed, well-nourished male, mildly confused. VITAL SIGNS: Stable. He is afebrile. HEAD, EYES, EARS, NOSE AND THROAT: Unremarkable. There is no icterus. NECK: Supple, without adenopathy or thyromegaly. CHEST: Clear to auscultation. HEART: Regular rate and rhythm without S3, S4 or murmur. ABDOMEN: Soft, nontender, without hepatosplenomegaly or masses. EXTREMITIES: Without cyanosis, clubbing, edema. NEUROLOGIC: Nonfocal. LABORATORY DATA: Initial labs were remarkable primarily for an elevated ammonia level. Chest x-ray and CT scanning of the head showed no acute changes. IMPRESSION: 1. Hepatic encephalopathy. 2. Other problems listed above. PLAN: Continue present care. I would expect to improve completely back on his Xifaxan in addition to his lactulose. I believe he has home health seeing him at home and I will need to have them investigate for me when he gets home as to whether or not Xifaxan is in the house or not or would anticipate that he will be readmitted within the next week or so once again. TOÑO Andrea. MD DAKOTAH DR: JAGDISH/jason JOB#: [id number] / [id number] DICTATED BY: TOÑO CLAIRE MD 03/24/20 0756 SIGNED BY: TOÑO CLAIRE MD 03/25/20 0753 cc: TOÑO CLAIRE MD ~[id number] 28 Page of TOÑO CLAIRE MD Jun 18, 2020 15:16
== END 2020-03-26 10:40 | disposition home health service (06) | DRG 443 ==
LOC: ER 14:15 → 6 SOUTH 16:35
PROVIDERS: ADMIT Family Medicine; ATTEND Family Medicine
DX: K72.90 Hepatic failure, unspecified without coma (principal); E11.9 Type 2 diabetes mellitus without complications; K74.60 Unspecified cirrhosis of liver; Z87.891 Personal history of nicotine dependence; Z90.49 Acquired absence of other specified parts of digestive tract; Z96.649 Presence of unspecified artificial hip joint; M19.90 Unspecified osteoarthritis, unspecified site; Z79.899 Other long term (current) drug therapy; Z20.822 Contact with and (suspected) exposure to COVID-19
CPT/HCPCS: 36415; 70450; 71045; 80048; 82140; 82962; 84484; 85025; 93005; 99285; U0003; G0378

== ENCOUNTER 2020-03-29 14:01 | Inpatient (IN) | payer MEDICARE ==
[~2020-03-29] VITALS: Ht 165.1 cm; Wt 76.6 kg
[~2020-03-29 14:01] MED LIST changes: +LIDOCAINE 2% JELLY 6ML IN APPLICATOR. ONE
[2020-03-29] MEDS ORDERED: IV NORMAL SALINE 1000ML BAG 1,000 ML IV ONE (14:30)
--- NOTE | 2020-03-29 14:59 | EKG ---
[facility] [address] [place] [address] Test Date: 2020-03-29 Test Time: 14:53:14 Pat Name: KEITH PHILLIPS Department: Room: Gender: M Wire Brush Maker: : 1945 Requested By: HERBERTH MCCURDY Order Number: [id number] Reading MD: Aj Dennis Measurements Intervals Cody Rate: 58 P: ID: QRS: 49 QRSD: 78 T: 28 QT: 436 QTc: 432 Interpretive Statements SINUS BRADYCARDIA LOW LIMB LEAD VOLTAGE Electronically Signed On 04-06-2020 10:22:33 PLATE INSPECTOR by Aj Dennis
--- NOTE | 2020-03-29 14:59 | RAD ---
STUDY: CT head without contrast INDICATION: Altered mental status. COMPARISON: 03/23/2020 TECHNIQUE: Axial CT imaging through the head without the use of intravenous contrast. Sagittal and co suresh reformats were obtained. One or more of the following individualized dose reduction techniques were utilized for this examinat ion: 1. Automated exposure control 2. Adjustment of the mA and/or kV according to patient size 3. Use of iterative reconstruction technique. FINDINGS: No acute intracranial hemorrhage. Small focus of increased density along the falx, image 23 series 2, is unchanged across several comparisons. No large area of cardona-white matter differentiation loss. No localized mass effect, midline shift or hydrocephalus. Parenchymal volume loss and white matter findings most likely on account of chronic microvascular isc hemic change. No depressed calvarial fracture. No layering fluid within the visualized paranasal sinuses. Normally aerated mastoid air cells and middle ears IMPRESSION: No acute intracranial abnormality by CT. No significant change relative to the 03/23/2020 comparison. Electronically signed by: MECCA FRANCO MD (03/29/2020 2:57 PM) [id number]
[2020-03-29 15:25] LABS: BASO % 1 % (0-3); EOS # 0.2 x10^3/uL (0.0-0.7); EOS % 5 % (0-3); HEMATOCRIT 43.3 % (39.0-53.0); HEMOGLOBIN 15.1 g/dL (13.0-17.5); LYMPH # 1.1 x10^3/uL (1.0-4.8); LYMPH % 21 % (24-48); MEAN CORPUSCULAR HEMOGLOBIN 34 pg (25-35); MEAN CORPUSCULAR HGB CONC 35 g/dL (31-37); MEAN CORPUSCULAR VOLUME 97 fL (79-100); MONO # 0.5 x10^3/uL (0.0-1.1); MONO % 9 % (0-9); NEUT # 3.3 x10^3/uL (1.8-7.7); NEUT % 65 % (31-73); PLATELET COUNT 79 x10^3/uL (140-400); RED BLOOD COUNT 4.46 x10^6/uL (4.30-5.70); RED CELL DISTRIBUTION WIDTH 13.8 % (11.5-14.5); WHITE BLOOD COUNT 5.1 x10^3/uL (4.0-11.0)
--- NOTE | 2020-03-29 15:29 | RAD ---
XR CHEST 1V Clinical Indication: Reason: AMs / Comparison: AP chest March 23, 2020. Findings: The cardiomediastinal silhouette is normal. Calcified right hilar lymph nodes. Lungs are clear. There is no pneumothorax. No pleural effusion is appreciated. No acute bone abnormality. IMPRESSION: No acute cardiopulmonary process. Electronically signed by: Alan Hansen MD (03/29/2020 3:27 PM) [id number]
[2020-03-29 15:48] LABS: PROTHROMBIN TIME PATIENT 14.4 SEC (11.7-14.0)
[2020-03-29 16:03] LABS: ALBUMIN 3.1 g/dL (3.4-5.0); CALCIUM 8.7 mg/dL (8.5-10.1); CREATININE 1.1 mg/dL (0.7-1.3); GFR 65.1; MAGNESIUM 2.3 mg/dL (1.8-2.4); TOTAL BILIRUBIN 1.9 mg/dL (0.2-1.0); TOTAL PROTEIN 6.3 g/dL (6.4-8.2)
[2020-03-29] MEDS ORDERED: ACETAMINOPHEN 325 MG TABLET. PO PRN (18:00)
[2020-03-29] MEDS ORDERED: ONDANSETRON PF 4 MG/2 ML VIAL. IV PRN (18:00)
[2020-03-29] MEDS: SODIUM POLYSTYRENE SULFON/SORB 15 GM/60 ML ORAL.SUSP. PO ONE ×2 (18:15→18:46)
--- NOTE | 2020-03-29 18:39 | PHYS DOC ---
Past Medical History Past Medical History: Arthritis, Diabetes-Type II, Liver Disease Past Surgical History: Appendectomy, Hip Replacement Additional Past Surgical Histo: right knee scope Smoking Status: Unknown if ever smoked Alcohol Use: Sober Drug Use: None General Adult EDM: Chief Complaint: ALTERED MENTAL STATUS HPI: HPI: Patient is a 75 year old male with a history of hepatic encephalopathy, diabetes type 2, liver disease, who presents to the ED today via EMS from home. Patient's states patient is altered. She said patient was discharged from the hospital on March 26, 2020 after being admitted for hepatic encephalopathy. She states since yesterday patient has not been answering questions appropriately. He is not following directions well. She states patient is not able to get up and move. Patient appears sleepy. reports patient was recently diagnosed with dementia. Review of Systems: Review of Systems: Constitutional: Denies fever or chills. [] Eyes: Denies change in visual acuity. [] HENT: Denies nasal congestion or sore throat. [] Respiratory: Denies cough or shortness of breath. [] Cardiovascular: Denies chest pain or edema. [] GI: Denies abdominal pain, nausea, vomiting, bloody stools or diarrhea. [] : Denies dysuria. [] Musculoskeletal: Denies back pain or joint pain. [] Integument: Denies rash. [] Neurologic: Reports altered mental status. Denies headache, focal weakness or sensory changes. [] Psychiatric: Denies depression or anxiety. [] Heart Score: Risk Factors: Risk Factors: DM, Current or recent (<one month) smoker, HTN, HLP, family history of CAD, obesity. Risk Scores: Score 0 - 3: 2.5% MACE over next 6 weeks - Discharge Home Score 4 - 6: 20.3% MACE over next 6 weeks - Admit for Clinical Observation Score 7 - 10: 72.7% MACE over next 6 weeks - Early Invasive Strategies Current Medications: Current Medications Medications (Trade) Dose Ordered Sig/Emily Start Time Stop Time Status Last Admin Dose Admin Acetaminophen (Tylenol) 650 mg PRN Q4HRS PRN 03/29/20 18:00 03/30/20 17:59 Lactulose (Lactulose) 20 gm QID 03/29/20 21:00 Ondansetron HCl (Zofran) 4 mg PRN Q8HRS PRN 03/29/20 18:00 03/30/20 17:59 Rifaximin (Xifaxan) 550 mg Q12HR 03/29/20 21:00 Sodium Polystyrene Sulfonate (Kayexalate) 30 gm 1X ONCE 03/29/20 18:00 03/29/20 18:05 DC 03/29/20 18:15 30 GM Sodium Chloride 1,000 ml @ 1,000 mls/hr 1X ONCE 03/29/20 14:30 03/29/20 15:29 DC 03/29/20 15:09 1,000 MLS/HR Allergies: Allergies: Allergies Coded Allergies Type Severity Reaction Last Updated Verified I S O L A T I O N *CONTACT* Allergy Unknown 11/06/19 Yes No Known Medication Allergies Allergy Unknown 11/06/19 Yes Physical Exam: PE: Constitutional: Well developed, well nourished, no acute distress, non-toxic appearance. [] HENT: Normocephalic, atraumatic, bilateral external ears normal, oropharynx moist, no oral exudates, nose normal. [] Eyes: PERRLA, EOMI, conjunctiva normal, no discharge. [] Neck: Normal range of motion, no tenderness, supple, no stridor. [] Cardiovascular:Heart rate regular rhythm, no murmur [] Lungs & Thorax: Bilateral breath sounds clear to auscultation [] Abdomen: Bowel sounds normal, soft, no tenderness, no masses, no pulsatile masses. [] Skin: Warm, dry, no erythema, no rash. [] Back: No tenderness, no CVA tenderness. [] Extremities: No tenderness, no cyanosis, no clubbing, ROM intact, no edema. [] Neurologic: Alert and oriented X 1, normal motor function, normal sensory function, no focal deficits noted. Cranial nerves II through XII intact. Psychologic: Flat affect, combative at times swinging hands at staff Current Patient Data: Labs: Laboratory Tests Test 03/29/20 15:06 03/29/20 17:01 White Blood Count 5.1 x10^3/uL (4.0-11.0) Red Blood Count 4.46 x10^6/uL (4.30-5.70) Hemoglobin 15.1 g/dL (13.0-17.5) Hematocrit 43.3 % (39.0-53.0) Mean Corpuscular Volume 97 fL (79-100) Mean Corpuscular Hemoglobin 34 pg (25-35) Mean Corpuscular Hemoglobin Concent 35 g/dL (31-37) Red Cell Distribution Width 13.8 % (11.5-14.5) Platelet Count 79 x10^3/uL (140-400) L Neutrophils (%) (Auto) 65 % (31-73) Lymphocytes (%) (Auto) 21 % (24-48) L Monocytes (%) (Auto) 9 % (0-9) Eosinophils (%) (Auto) 5 % (0-3) H Basophils (%) (Auto) 1 % (0-3) Neutrophils # (Auto) 3.3 x10^3/uL (1.8-7.7) Lymphocytes # (Auto) 1.1 x10^3/uL (1.0-4.8) Monocytes # (Auto) 0.5 x10^3/uL (0.0-1.1) Eosinophils # (Auto) 0.2 x10^3/uL (0.0-0.7) Basophils # (Auto) 0.0 x10^3/uL (0.0-0.2) Prothrombin Time 14.4 SEC (11.7-14.0) H Prothrombin Time INR 1.2 (0.8-1.1) H Activated Partial Thromboplast Time 38 SEC (24-38) Sodium Level 135 mmol/L (136-145) L Potassium Level 6.0 mmol/L (3.5-5.1) H 6.2 mmol/L (3.5-5.1) *H Chloride Level 106 mmol/L (98-107) Carbon Dioxide Level 20 mmol/L (21-32) L Anion Gap 9 (6-14) Blood Urea Nitrogen 30 mg/dL (8-26) H Creatinine 1.1 mg/dL (0.7-1.3) Estimated GFR (Cockcroft-Gault) 65.1 BUN/Creatinine Ratio 27 (6-20) H Glucose Level 132 mg/dL (70-99) H Lactic Acid Level 1.4 mmol/L (0.4-2.0) Calcium Level 8.7 mg/dL (8.5-10.1) Magnesium Level 2.3 mg/dL (1.8-2.4) Total Bilirubin 1.9 mg/dL (0.2-1.0) H Aspartate Amino Transferase (AST) 35 U/L (15-37) Alanine Aminotransferase (ALT) 28 U/L (16-63) Alkaline Phosphatase 140 U/L (46-116) H Troponin I Quantitative < 0.017 ng/mL (0.000-0.055) DO-Ine-V-Type Natriuretic Peptide 239 pg/mL (0-449) Total Protein 6.3 g/dL (6.4-8.2) L Albumin 3.1 g/dL (3.4-5.0) L Albumin/Globulin Ratio 1.0 (1.0-1.7) Thyroid Stimulating Hormone (TSH) 1.097 uIU/mL (0.358-3.74) Ammonia 94 mcmol/L (11-34) H Laboratory Tests 03/29/20 15:06 Laboratory Tests 03/29/20 15:06 03/29/20 17:01 Vital Signs: Vital Signs Date Time Temp Pulse Resp B/P (MAP) Pulse Ox O2 Delivery O2 Flow Rate FiO2 03/29/20 14:01 98.7 58 18 121/56 (77) 98 Room Air 98.7 EKG: EK Interpreted by Dr. Burrell sinus rhythm HR64 no STEMI[] Radiology/Procedures: Radiology/Procedures: []PROCEDURE: CT HEAD WO CONTRAST STUDY: CT head without contrast INDICATION: Altered mental status. COMPARISON: 03/23/2020 TECHNIQUE: Axial CT imaging through the head without the use of intravenous contrast. Sagittal and coronal reformats were obtained. One or more of the following individualized dose reduction techniques were utilized for this examination: 1. Automated exposure control 2. Adjustment of the mA and/or kV according to patient size 3. Use of iterative reconstruction technique. FINDINGS: No acute intracranial hemorrhage. Small focus of increased density along the falx, image 23 series 2, is unchanged across several comparisons. No large area of cardona-white matter differentiation loss. No localized mass effect, midline shift or hydrocephalus. Parenchymal volume loss and white matter findings most likely on account of chronic microvascular ischemic change. No depressed calvarial fracture. No layering fluid within the visualized paranasal sinuses. Normally aerated mastoid air cells and middle ears IMPRESSION: No acute intracranial abnormality by CT. No significant change relative to the 03/23/2020 comparison. Electronically signed by: MECCA FRANCO MD (03/29/2020 2:57 PM) [id number] DICTATED and SIGNED BY: MECCA FRANCO MD DATE: 03/29/20 [id number] 0 PROCEDURE: PORTABLE CHEST 1V XR CHEST 1V Clinical Indication: Reason: AMs / Comparison: AP chest March 23, 2020. Findings: The cardiomediastinal silhouette is normal. Calcified right hilar lymph nodes. Lungs are clear. There is no pneumothorax. No pleural effusion is appreciated. No acute bone abnormality. IMPRESSION: No acute cardiopulmonary process. Electronically signed by: Alan Hansen MD (03/29/2020 3:27 PM) [id number] DICTATED and SIGNED BY: ALAN HANSEN MD DATE: 03/29/20 [id number] 0 Course & Med Decision Making: Course & Med Decision Making Pertinent Labs and Imaging studies reviewed. (See chart for details) This is a 75-year-old male patient presented to the ED today to be evaluated for altered mental status that states has been going on since patient was discharged from the hospital on March 26, 2020 after being treated for hepatic encephalopathy. feels symptoms of gotten worse. Patient is alert oriented x1. Does not follow directions well. CT of the head is negative, chest x-ray is negative, ammonia 94. Potassium 6.0 initially, repeat potassium was done which was 6.2. No EKG changes. Spoke with Dr. Camacho admitting physician who requested we start patient on Xifaxan, lactulose and Kayexalate. Patient was admitted in stable condition Dragon Disclaimer: Dragalistair Disclaimer: This electronic medical record was generated, in whole or in part, using a voice recognition dictation system. Departure Departure Impression: Primary Impression: Hepatic encephalopathy Additional Impressions: Hyperkalemia Altered mental status Qualified Codes: R41.82 - Altered mental status, unspecified Disposition: 09 ADMITTED INPT THIS HOSP Condition: STABLE Referrals: TOÑO CAMACHO MD (PCP) HERBERTH MCCURDY APRN Mar 29, 2020 18:39
[2020-03-29 20:42] LABS: BILIRUBIN,URINE NEGATIVE (NEG); CLARITY,URINE CLEAR; COLOR,URINE YELLOW; NITRITE,URINE NEGATIVE (NEG); PH,URINE 6.5 (<5.0-8.0); PROTEIN,URINE NEGATIVE (NEG-TRACE); UROBILINOGEN,URINE 0.2 mg/dL (0.2 mg/dL)
[2020-03-29 20:49] LABS: AMPHETAMINE/METHAMPHETAMINE NEG (NEG); BARBITURATES NEG (NEG); BENZODIAZEPINES NEG (NEG); CANNABINOIDS NEG (NEG); COCAINE NEG (NEG); METHADONE NEG (NEG); OPIATES NEG (NEG); PHENCYCLIDINE NEG (NEG)
[2020-03-29 20:50] LABS: BACTERIA,URINE 0 /HPF (0-FEW); RBC,URINE 0 /HPF (0-2); WBC,URINE 0 /HPF (0-4)
[2020-03-29] MEDS ORDERED: LACTULOSE 20 GM/30 ML SOLUTION. PO SCH (21:00)
--- NOTE | 2020-03-29 21:15 | NUR ---
Pt admitted with AMS, recurrent admissions for same problem. VSS, SR on telemetry, medications reviewed and new medications administered. Bed in low/locked position, call light within reach, will continue to monitor for status changes.
[2020-03-29 21:25] VITALS: BP 133/49
[2020-03-29] MEDS: rifAXIMin 550 MG TABLET PO SCH (22:35)
[2020-03-29] MEDS: LACTULOSE 20 GM/30 ML SOLUTION. PO SCH (22:35)
[2020-03-29 22:55] VITALS: BP 131/52
[2020-03-30] VITALS (7 sets, daily range): BP systolic 97–128; BP diastolic 42–63
[2020-03-30] MEDS: LACTULOSE 20 GM/30 ML SOLUTION. PO SCH ×4 (08:02→21:47)
[2020-03-30] MEDS: rifAXIMin 550 MG TABLET PO SCH ×2 (08:02→21:47)
[2020-03-30] MEDS: FUROSEMIDE 40 MG TABLET. PO SCH (08:35)
[2020-03-30] MEDS: LISINOPRIL 5 MG TABLET. PO SCH (08:35)
[2020-03-30] MEDS: PIOGLITAZONE 15 MG TABLET. PO SCH (08:35)
[2020-03-30] MEDS: PANTOPRAZOLE 40 MG TABLET.DR. PO SCH (08:35)
[2020-03-30] MEDS: glipiZIDE 5 MG TABLET PO SCH ×2 (08:35→17:04)
[2020-03-30] MEDS: SPIRONOLACTONE 25 MG TABLET PO SCH ×2 (08:38→21:47)
--- NOTE | 2020-03-30 08:59 | EKG ---
[facility] [address] [place] [address] Test Date: 2020-03-29 Test Time: 17:53:06 Pat Name: KEITH PHILLIPS Department: Room: 200 1 Gender: M Architect: : 1945 Requested By: HERBERTH MCCURDY Order Number: [id number] Reading MD: Aj Dennis Measurements Intervals [place] Rate: 64 P: 90 UT: 176 QRS: 51 QRSD: 76 T: 27 QT: 416 QTc: 433 Interpretive Statements SINUS RHYTHM LOW LIMB LEAD VOLTAGE Electronically Signed On 04-06-2020 10:24:10 COMMISSION SPECIALIST by Aj Dennis
[2020-03-30 09:19] LABS: BASO % 1 % (0-3); EOS # 0.1 x10^3/uL (0.0-0.7); EOS % 4 % (0-3); HEMATOCRIT 41.3 % (39.0-53.0); HEMOGLOBIN 14.3 g/dL (13.0-17.5); LYMPH # 0.9 x10^3/uL (1.0-4.8); LYMPH % 22 % (24-48); MEAN CORPUSCULAR HEMOGLOBIN 33 pg (25-35); MEAN CORPUSCULAR HGB CONC 35 g/dL (31-37); MEAN CORPUSCULAR VOLUME 97 fL (79-100); MONO # 0.4 x10^3/uL (0.0-1.1); MONO % 10 % (0-9); NEUT # 2.6 x10^3/uL (1.8-7.7); NEUT % 65 % (31-73); PLATELET COUNT 70 x10^3/uL (140-400); RED BLOOD COUNT 4.27 x10^6/uL (4.30-5.70); RED CELL DISTRIBUTION WIDTH 13.3 % (11.5-14.5)
[2020-03-30 09:41] LABS: CALCIUM 8.6 mg/dL (8.5-10.1); GFR 72.6; POTASSIUM 4.3 mmol/L (3.5-5.1); TOTAL BILIRUBIN 2.3 mg/dL (0.2-1.0)
--- NOTE | 2020-03-30 12:50 | NUR ---
SS following for discharge planning. SS reviewed pt chart and discussed with pt RN. Pt is from home with spouse and is currently on room air. Per RN, potassium was 6.2 on admission and ammonia was high. Discharge plan is currently to home when medically stable. SS will continue to follow for discharge planning.
--- NOTE | 2020-03-30 18:27 | HP ---
ADMIT DATE: 03/30/2020 CHIEF COMPLAINT AND HISTORY OF PRESENT ILLNESS: This 75-year-old male is well known to me from followup in the office. The patient has a longstanding history of cirrhosis, hepatic encephalopathy, diabetes, presented by EMS to the Emergency Room with altered mental status. He had been discharged on 03/26 after being admitted for hepatic encephalopathy. states from the day prior to admission, he had not been answering questions appropriately, not following directions, was irritable. He was found to have elevated ammonia level and hyperkalemia, admitted to the hospital for the same. PAST MEDICAL HISTORY: Remarkable for the cirrhosis, diabetes, arthritis, hepatic encephalopathy. PAST SURGICAL HISTORY: Remarkable for an appendectomy, hip replacement, knee scope. MEDICATIONS: Brought with the patient, listed on the computer and have been addressed. ALLERGIES: He has no known drug allergies. SOCIAL HISTORY: He is a reformed smoker, nondrinker. Does not use drugs. , lives at home with his . FAMILY HISTORY: Noncontributory. REVIEW OF SYSTEMS: As that is mentioned above. He still is not clear by the time of my examination, not able to give a great review of systems other than they wants to go home. PHYSICAL EXAMINATION: GENERAL: He is well-developed, well-nourished male, in no acute distress. VITAL SIGNS: Stable. He is afebrile. HEAD, EYES, EARS, NOSE AND THROAT: Unremarkable. There is no icterus. NECK: Supple, without adenopathy or thyromegaly. CHEST: Clear to auscultation and percussion. HEART: Regular rate and rhythm without S3, S4 or murmur. ABDOMEN: Soft, nontender, without hepatosplenomegaly or masses. EXTREMITIES: Without cyanosis, clubbing, or edema. NEUROLOGIC: Other than the confusion, nonfocal. LABORATORY DATA: Initial laboratory is remarkable for the hyperkalemia of 6, for which he has received Kayexalate and it is down to 4.3 on recheck. Bilirubin is 1.9, alkaline phosphatase is 140. Hematology is unremarkable other than thrombocytopenia 79,000, which is his baseline with his cirrhosis close to it. Toxicology screen is unremarkable and urinalysis is unremarkable. He has head CT, head imaging and chest x-ray once again, none helpful as far as any significant findings. IMPRESSION: 1. Recurrent hepatic encephalopathy. 2. Hyperkalemia. 3. Other problems listed above. PLAN: Kayexalate as mentioned has been given. We will follow the potassium. He was restarted on his Xifaxan and lactulose. I would expect clearing of his mentation and we will have to figure out what is going on at home and whether he is taking his medicines regularly or not. If not, GI help will need to be entertained. TOÑO CLAIRE MD DR: JAGDISH/jason JOB#: [id number] / [id number]
[2020-03-31 02:20] VITALS: BP 112/47
[2020-03-31 07:26] VITALS: BP 116/43
[2020-03-31] MEDS: PIOGLITAZONE 15 MG TABLET. PO SCH (08:04)
[2020-03-31] MEDS: LISINOPRIL 5 MG TABLET. PO SCH (08:04)
[2020-03-31] MEDS: PANTOPRAZOLE 40 MG TABLET.DR. PO SCH (08:05)
[2020-03-31] MEDS: rifAXIMin 550 MG TABLET PO SCH ×2 (08:05→20:14)
[2020-03-31] MEDS: FUROSEMIDE 40 MG TABLET. PO SCH (08:05)
[2020-03-31] MEDS: SPIRONOLACTONE 25 MG TABLET PO SCH ×2 (08:05→20:14)
[2020-03-31] MEDS: LACTULOSE 20 GM/30 ML SOLUTION. PO SCH ×4 (08:06→20:14)
[2020-03-31] MEDS: glipiZIDE 5 MG TABLET PO SCH ×2 (08:09→17:01)
--- NOTE | 2020-03-31 09:51 | PN ---
DATE: 03/31/2020 LOCATION: He is in room 200. SUBJECTIVE: This 75-year-old male remains hospitalized for hepatic encephalopathy. The patient does seem better oriented this morning knowing where he is at and it is 2020, he thinks it is Sunday instead of Sunday, but it is pretty close. He once again is pushing for discharge. His morning labs are pending including an ammonia level, which I am going to wait on and if it has not started drifting down significantly, ask for GI help. OBJECTIVE: VITAL SIGNS: Stable. He is afebrile. HEAD, EYES, EARS, NOSE AND THROAT: Unremarkable. No icterus. NECK: Supple, without adenopathy or thyromegaly. CHEST: Clear to auscultation and percussion. HEART: Regular rate and rhythm. ABDOMEN: Soft, nontender, without hepatosplenomegaly or masses. EXTREMITIES: No significant edema. NEUROLOGIC: Nonfocal. He does remain mildly confused. IMPRESSION: 1. Hepatic encephalopathy with clinical improvement. 2. Diabetes. 3. Cirrhosis. PLAN: Continue present regimen and await morning labs. His hyperkalemia was resolved yesterday. I am going to need to speak with his on discharge in addition to make sure that he is very quaker with his lactulose and Xifaxan. TOÑO CLAIRE MD DR: JAGDISH/jason JOB#: [id number] / [id number]
--- NOTE | 2020-03-31 09:52 | NUR ---
SS following up with discharge planning. SS reviewed pt chart and discussed with pt RN. Pt is currently on room air. Ammonia level being checked today and if stable pt may discharge to home. SS will continue to follow for discharge planning.
[2020-03-31 10:31] VITALS: BP 112/46
--- NOTE | 2020-03-31 11:07 | NUR ---
SS following up with discharge planning. Pt's ammonia increased. Not stable for discharge at this time. GI consulted. SS will continue to follow for discharge planning.
--- NOTE | 2020-03-31 12:02 | PDOC2 ---
GI CONSULT Date of Service: DATE: 03/31/20 TIME: 12:02 Reason For Consult: high ammonia HPI: HPI: 75 y/o male who we have seen in the past, most recently in 10/2019. This is the third admission since then for hepatic encephalopathy. Nurse says we are asked to see due to rising ammonia level. Ammonia on 03/29 was 94, then 98 on 03/30, and today is 130. Has been on lactulose 15gm QID + Xifaxan 550mg BID since yesterday afternoon. 1 stool charted yesterday, 2 today. Pt and family ( who speaks Upper Sorbian and sister who speaks Stateless) report compliance w/ medications at home w/ help from home health. He says he has bowel movements "all day." Denies reflux/heartburn, n/v, abd pain, constipation, bleeding, change in appetite, and weight loss. Does have h/o GERD and is on PPI here. Per [facility]: CT A/P 09/2013 (for follow-up on cirrhosis): cirrhosis w/ portal hypertension and extensive varices. Noted cholecystectomy. Barium swallow 02/2014: decreased esophageal peristalsis. Hep B and C were negative in 2014. RUBEN was negative and AMA was normal. Hem ochromatosis testing was "low risk"/negative. B12 was normal in 2014. Past labs note hyperammonemia in 2014, 10/2019, 02/2020, and now. Additionally, h/o thrombocytopenia, and elevated bilirubin, AST, and Alk Phos. AFP was normal in 10/2019. Abd US in 10/2019 showed cirrhosis w/ mild splenomegaly, patent portal vein, and no ascites. Mention of past heavy alcohol use and recent dementia diagnosis. Per our office: No complications from cirrhosis per OV 06/21/16. EGD and colonoscopy on 06/29/[address] Alvarez showed reflux esophagitis (confirmed w/ biopsy, negative for Herrera's, and ?positive for eosinophilic esophagitis), chronic gastritis, normal duodenum, no varices, sigmoid diverticulosis, and internal hemorrhoids. PMH: PMH: per chart: DM, lumbar stenosis, DDD, UTI cholecystectomy, appendectomy, right hip replacement, knee arthroscopy FH: Family History: No pertinent hx Social History: Smoke: Quit ALCOHOL: other (unclear - ?heavy in past) ROS: GEN: Denies fevers, chills, sweats HEENT: Denies blurred vision, sore throat CV: Denies chest pain RESP: Denies shortness of air, cough GI: Per HPI : Denies hematuria, dysuria ENDO: Denies weight changes NEURO: Denies confusion, dizziness MSK: Denies weakness, joint pain/swelling SKIN: Denies jaundice, pruritus Vitals: Vitals: Vital Signs Date Time Temp Pulse Resp B/P (MAP) Pulse Ox O2 Delivery O2 Flow Rate FiO2 03/31/20 10:31 98.8 70 19 112/46 (68) 95 Room Air 98.8 Labs: Labs: Laboratory Tests Test 03/31/20 09:30 Ammonia 130 mcmol/L BLOOD CULTURE Preliminary NO GROWTH AFTER 1 DAY Allergies: Coded Allergies: I S O L A T I O N *CONTACT* (Verified Allergy, Unknown, 11/06/19) ESBL No Known Medication Allergies (Verified Allergy, Unknown, 11/06/19) Medications: Current Medications Medications (Trade) Dose Ordered Sig/Emily Route PRN Reason Start Time Stop Time Status Last Admin Dose Admin Lactulose (Lactulose) 15 gm QID PO 03/30/20 13:00 03/31/20 08:06 Rifaximin (Xifaxan) 550 mg Q12HR PO 03/30/20 21:00 03/31/20 08:05 Imaging: Imaging: Head CT 03/29 IMPRESSION: No acute intracranial abnormality by CT. No significant change relative to the 03/23/2020 comparison. CXR 03/29 IMPRESSION: No acute cardiopulmonary process. PE: GEN: NAD HEENT: Atraumatic, PERRL LUNGS: CTAB HEART: RRR ABD: NABS, S/ND/NT EXTREMITY: No edema SKIN: No rashes, no jaundice NEURO/PSYCH: pleasantly confused A/P: A/P: Cirrhosis (?alcohol), hepatic encephalopathy - last workup in 10/2019; third admission since Chronic thrombocytopenia, elevated LFTs, hyperammonemia Hyperkalemia - resolved GERD - on PPI CRC screen - UTD Diverticulosis, hemorrhoids S/p cholecystectomy ?dementia -- ER ordered UA (negative) and blood culture (preliminary negative). Continue lactulose and Xifaxan - goal is 3-4 stools daily. Apparently compliant at home. Agree w/ PPI for GERD history. MELD 12. Reviewed w/ Dr. Alvarez - recheck AFP and Doppler liver/PV. SEMAJ MAN Mar 31, 2020 12:02
[2020-03-31 14:33] VITALS: BP 120/43
--- NOTE | 2020-03-31 17:34 | RAD ---
Exam: Ultrasound abdomen limited Doppler Indication: Evaluate liver and portal vein, check for ascites Technique: Real-time grayscale and color Doppler images of the right upper quadrant were obtained by the department manager quantitative. Comparisons: None FINDINGS: Liver contour is normal. Increased echogenicity of the liver which demonstrates a coarse echotexture. Hepatopedal flow noted in the main, right and left portal vein. IMPRESSION: 1. Increased course echogenicity of the liver likely related to cirrhosis/steatosis 2. Patent portal vein with hepatopedal flow. Electronically signed by: Estevan Barker MD (03/31/2020 5:31 PM) [facility]
[2020-03-31 19:40] VITALS: BP 108/49
[2020-03-31 22:54] VITALS: BP 102/42
[2020-04-01 02:00] VITALS: BP 119/52
--- NOTE | 2020-04-01 06:36 | NUR ---
IP: Pt's has a hx of ESBl in urine on 10/2019 but current UA is negative. Discontinue contact precautions.
[2020-04-01 07:00] VITALS: BP 111/48
[2020-04-01] MEDS: LACTULOSE 20 GM/30 ML SOLUTION. PO SCH ×4 (08:40→20:26)
[2020-04-01] MEDS: glipiZIDE 5 MG TABLET PO SCH ×2 (08:40→17:36)
[2020-04-01] MEDS: SPIRONOLACTONE 25 MG TABLET PO SCH ×2 (08:40→20:26)
[2020-04-01] MEDS: LISINOPRIL 5 MG TABLET. PO SCH (08:41)
[2020-04-01] MEDS: FUROSEMIDE 40 MG TABLET. PO SCH (08:41)
[2020-04-01] MEDS: PIOGLITAZONE 15 MG TABLET. PO SCH (08:41)
[2020-04-01] MEDS: PANTOPRAZOLE 40 MG TABLET.DR. PO SCH (08:41)
--- NOTE | 2020-04-01 09:49 | PDOC ---
Date of Service: DATE: 04/01/20 TIME: 09:45 Subjective: Subjective: Says the year is 2018. I asked who's playing in the Super Bowl - "[employer]." Later also remembers [employer]. Knows he's at [facility]. Objective: Objective: D/w nurse - stooling adequately. Vital Signs: Vital Signs Date Time Temp Pulse Resp B/P (MAP) Pulse Ox O2 Delivery O2 Flow Rate FiO2 04/01/20 08:41 77 111/48 04/01/20 07:00 97.6 16 96 Room Air 97.6 Labs: BLOOD CULTURE Preliminary NO GROWTH AFTER 2 DAYS AFP 2.2 Imaging: Abd Doppler IMPRESSION: 1. Increased course echogenicity of the liver likely related to cirrhosis/steatosis 2. Patent portal vein with hepatopedal flow. PE: GEN: NAD LUNGS: CTAB HEART: RRR ABD: soft NEURO/PSYCH: confused A/P: Hepatic encephalopathy -- AFP normal, PV patent. UA negative, blood culture negative so far. Continue lactulose and Xifaxan. Will return later w/ Dr. Alvarez. Justicifation of Admission Dx: Justifications for Admission: Justification of Admission Dx: Yes SEMAJ MAN Apr 01, 2020 09:49
[2020-04-01 11:05] VITALS: BP 114/48
[2020-04-01] MEDS: rifAXIMin 550 MG TABLET PO SCH ×2 (12:50→20:26)
--- NOTE | 2020-04-01 13:21 | NUR ---
SS following up with discharge planning. SS reviewed pt chart and discussed with pt RN. Pt is currently on room air. Discharge plan is to home when medically ready. SS was informed that pt had services with [facility], ; fax [phone]. SS will continue to follow for discharge planning. Addendum: 04/01/20 at 1334 by ADA WHELAN SS phoned and faxed clinical updates to [facility].
[2020-04-01 14:44] VITALS: BP 119/47
--- NOTE | 2020-04-01 19:37 | PN ---
DATE: 04/01/2020 LOCATION: He is in room 200. SUBJECTIVE: The patient is awake and alert this morning, speaking on the phone with his . He remains encephalopathic, but I believe slightly improved. I did speak with his on the phone while I was in the room and she confirmed that he was still nowhere close to his baseline. OBJECTIVE: VITAL SIGNS: Stable. He is afebrile. CHEST: Clear. HEART: Regular. ABDOMEN: Benign. DIAGNOSTIC DATA: Ammonia level is down to 108 this morning. GI imaging is ultrasound of the abdomen shows cirrhosis and patent portal vein with hepatopetal flow. IMPRESSION: 1. Cirrhosis with hepatic encephalopathy. 2. Diabetes. PLAN: Continue present regimen. We will check labs again in the morning and compare to the same and watch for clinical improvement. He would be at the status where his would be able to handle him at home, which currently is not the case. TOÑO CLAIRE MD DR: JAGDISH/jason JOB#: [id number] / [id number]
[2020-04-01 19:38] VITALS: BP 120/48
[2020-04-01 22:20] VITALS: BP 99/39
[2020-04-02 03:20] VITALS: BP 95/35
[2020-04-02 07:00] VITALS: BP 114/46
[2020-04-02 07:12] LABS: CALCIUM 8.1 mg/dL (8.5-10.1); CREATININE 1.2 mg/dL (0.7-1.3); GFR 58.9; POTASSIUM 4.1 mmol/L (3.5-5.1)
[2020-04-02] MEDS: rifAXIMin 550 MG TABLET PO SCH (08:14)
[2020-04-02] MEDS: FUROSEMIDE 40 MG TABLET. PO SCH (08:14)
[2020-04-02] MEDS: LACTULOSE 20 GM/30 ML SOLUTION. PO SCH (08:14)
[2020-04-02] MEDS: PIOGLITAZONE 15 MG TABLET. PO SCH (08:14)
[2020-04-02 08:15] VITALS: BP 114/46
[2020-04-02] MEDS: SPIRONOLACTONE 25 MG TABLET PO SCH (08:15)
[2020-04-02] MEDS: LISINOPRIL 5 MG TABLET. PO SCH (08:15)
[2020-04-02] MEDS: PANTOPRAZOLE 40 MG TABLET.DR. PO SCH (08:16)
[2020-04-02] MEDS: glipiZIDE 5 MG TABLET PO SCH (08:16)
--- NOTE | 2020-04-02 09:15 | NUR ---
DISCHARGED PATIENT TO HOME. DISCHARGE INSTRUCTIONS GIVEN. PIV AND HEART MONITOR REMOVED. ESCORTED PATIENT OFF UNIT PER WHEELCHAIR INTO A PRIVATE VEHICLE.
--- NOTE | 2020-04-02 10:01 | NUR ---
SW following. Discussed with RN, pt discharged home. SW faxed home health orders to [facility]. No further SW needs.
--- NOTE | 2020-04-02 11:57 | DS ---
DATE OF DISCHARGE: 04/02/2020 PRIMARY DIAGNOSIS: Hepatic encephalopathy. ADDITIONAL DIAGNOSES: Cirrhosis of the liver, diabetes and arthritis. CHIEF COMPLAINT AND HISTORY OF PRESENT ILLNESS: This 75-year-old male admitted through the Emergency Room with mental status change and encephalopathy with elevated ammonia levels consistent with hepatic encephalopathy. Investigations for causes to exacerbate this were unrewarding. SUMMARY OF STAY: The patient was admitted and improved on a daily basis, even though the ammonia level did not correlate, his sister and were present on the day of discharge and felt they could handle him at home once again with his mental status being much improved despite the fact that his ammonia level had actually increased on the morning of discharge. It was agreed that he could be dismissed in their care, to call me right away if there were problems have and they understand the medicine regimen and will make sure that he is taking it. He was quite hyperkalemic on admission and this was remedied with Kayexalate x 1 and was not a problem again. He was also at his baseline thrombocytopenia due to the cirrhosis of the liver. DISPOSITION: The patient is discharged home. DIET: ADA diet. ACTIVITY: As tolerated. FOLLOWUP VISIT: Office in 1 week. DISCHARGE MEDICATIONS: Listed on the med rec and have been addressed. TOÑO CLAIRE MD DR: JAGDISH/jsaon JOB#: [id number] / [id number]
--- NOTE | 2020-06-18 14:59 | PDOC1 ---
History & Physical: Date of Service: DOS: 03-30-2020 H&P: PATIENT: KEITH PHILLIPS ACCOUNT: [id number] : 1945 LOC: [address] [place] [address] AGE: 75 SEX: M STATUS: ADM IN LOCATION: [address] [place] [address] ADMIT DATE: 03/30/2020 CHIEF COMPLAINT AND HISTORY OF PRESENT ILLNESS: This 75-year-old male is well known to me from followup in the office. The patient has a longstanding history of cirrhosis, hepatic encephalopathy, diabetes, presented by EMS to the Emergency Room with altered mental status. He had been discharged on 03/26 after being admitted for hepatic encephalopathy. states from the day prior to admission, he had not been answering questions appropriately, not following directions, was irritable. He was found to have elevated ammonia level and hyperkalemia, admitted to the hospital for the same. PAST MEDICAL HISTORY: Remarkable for the cirrhosis, diabetes, arthritis, hepatic encephalopathy. PAST SURGICAL HISTORY: Remarkable for an appendectomy, hip replacement, knee scope. MEDICATIONS: Brought with the patient, listed on the computer and have been addressed. ALLERGIES: He has no known drug allergies. SOCIAL HISTORY: He is a reformed smoker, nondrinker. Does not use drugs. , lives at home with his . FAMILY HISTORY: Noncontributory. REVIEW OF SYSTEMS: As that is mentioned above. He still is not clear by the time of my examination, not able to give a great review of systems other than they wants to go home. PHYSICAL EXAMINATION: GENERAL: He is well-developed, well-nourished male, in no acute distress. VITAL SIGNS: Stable. He is afebrile. HEAD, EYES, EARS, NOSE AND THROAT: Unremarkable. There is no icterus. NECK: Supple, without adenopathy or thyromegaly. CHEST: Clear to auscultation and percussion. HEART: Regular rate and rhythm without S3, S4 or murmur. ABDOMEN: Soft, nontender, without hepatosplenomegaly or masses. EXTREMITIES: Without cyanosis, clubbing, or edema. NEUROLOGIC: Other than the confusion, nonfocal. LABORATORY DATA: Initial laboratory is remarkable for the hyperkalemia of 6, for which he has received Kayexalate and it is down to 4.3 on recheck. Bilirubin is 1.9, alkaline phosphatase is 140. Hematology is unremarkable other than thrombocytopenia 79,000, which is his baseline with his cirrhosis close to it. Toxicology screen is unremarkable and urinalysis is unremarkable. He has head CT, head imaging and chest x-ray once again, none helpful as far as any significant findings. IMPRESSION: 1. Recurrent hepatic encephalopathy. 2. Hyperkalemia. 3. Other problems listed above. PLAN: Kayexalate as mentioned has been given. We will follow the potassium. He was restarted on his Xifaxan and lactulose. I would expect clearing of his mentation and we will have to figure out what is going on at home and whether he is taking his medicines regularly or not. If not, GI help will need to be entertained. TOÑO Andrea. MD DAKOTAH DR: JAGDISH/jason JOB#: [id number] / [id number] DICTATED BY: TOÑO CLAIRE MD 03/30/20 1702 SIGNED BY: TOÑO CLAIRE MD 04/01/20 0758 cc: TOÑO CLAIRE MD ~MTF0 28 Page of TOÑO CLAIRE MD Jun 18, 2020 14:59
== END 2020-04-02 09:15 | disposition home health service (06) | DRG 443 ==
LOC: ER 14:01 → 2 NORTH 17:58
PROVIDERS: ADMIT Family Medicine; ATTEND Family Medicine
DX: K72.90 Hepatic failure, unspecified without coma (principal); K74.60 Unspecified cirrhosis of liver; E87.5 Hyperkalemia; E11.9 Type 2 diabetes mellitus without complications; F03.90 Unspecified dementia, unspecified severity, without behavioral disturbance, psychotic disturbance, mood disturbance, and anxiety; K21.9 Gastro-esophageal reflux disease without esophagitis; Z96.641 Presence of right artificial hip joint; M19.90 Unspecified osteoarthritis, unspecified site; D69.6 Thrombocytopenia, unspecified; K57.90 Diverticulosis of intestine, part unspecified, without perforation or abscess without bleeding; Z87.891 Personal history of nicotine dependence; Z90.49 Acquired absence of other specified parts of digestive tract
CPT/HCPCS: 36415; 70450; 71045; 80048; 80053; 80307; 81001; 82105; 82140; 83605; 83735; 83880; 84132; 84443; 84484; 85025; 85610; 85730; 87040; 93005; 93976; 96360; J7030; 99285-25; G0378